=== PATIENT | male | born 1985 | race American Indian/Alaskan Native ===

== ENCOUNTER 2017-09-10 03:23 | Emergency (ER) | payer MEDICAID ==
[2017-09-10 03:55] VITALS: BP 153/104
[2017-09-10 05:04] LABS: Basophils # (Auto) 0.1 K/mm3 (0.0-0.1); Eosinophils # (Auto) 0.2 K/mm3 (0.0-0.4); Eosinophils % (Auto) 2.4 % (0.0-4.3); Hematocrit 38.1 % (35.5-45.6); Hemoglobin 12.7 gm/dl (11.8-15.2); Lymphocytes # (Auto) 3.2 K/mm3 (1.2-5.4); Lymphocytes % (Auto) 42.1 % (13.4-35.0); Mean Corpuscular HGB Conc 33 % (32-34); Mean Corpuscular Hemoglobin 30 pg (28-32); Mean Corpuscular Volume 89 fl (84-94); Monocytes # (Auto) 0.6 K/mm3 (0.0-0.8); Monocytes % (Auto) 8.1 % (0.0-7.3); Platelet Count 299 K/mm3 (140-440)
[2017-09-10 05:40] LABS: BUN/Creatinine Ratio 18; Blood Urea Nitrogen 16 mg/dL (9-20); Calcium 9.4 mg/dL (8.4-10.2); Hemolysis Index 12
== END 2017-09-10 05:00 | disposition left against medical advice (07) ==
LOC: ED 03:23
DX: R45.851 Suicidal ideations (principal); Z53.21 Procedure and treatment not carried out due to patient leaving prior to being seen by health care provider
CPT/HCPCS: 36415; 80048; 85025; G0480; 80320

== ENCOUNTER 2018-01-11 02:41 | Emergency (ER) | payer MEDICAID ==
[2018-01-11 04:18] LABS: Basophils # (Auto) 0.1 K/mm3 (0.0-0.1); Eosinophils # (Auto) 0.1 K/mm3 (0.0-0.4); Eosinophils % (Auto) 1.3 % (0.0-4.3); Hematocrit 41.7 % (35.5-45.6); Hemoglobin 14.3 gm/dl (11.8-15.2); Lymphocytes # (Auto) 2.5 K/mm3 (1.2-5.4); Lymphocytes % (Auto) 39.3 % (13.4-35.0); Mean Corpuscular HGB Conc 34 % (32-34); Mean Corpuscular Hemoglobin 30 pg (28-32); Mean Corpuscular Volume 88 fl (84-94); Monocytes # (Auto) 0.5 K/mm3 (0.0-0.8); Monocytes % (Auto) 7.3 % (0.0-7.3); Platelet Count 374 K/mm3 (140-440); Red Blood Count 4.73 M/mm3 (3.65-5.03); Red Cell Distribution Width 14.1 % (13.2-15.2)
[2018-01-11 04:22] LABS: BUN/Creatinine Ratio 17; Blood Urea Nitrogen 26 mg/dL (9-20); Calcium 10.1 mg/dL (8.4-10.2); Hemolysis Index 5
--- NOTE | 2018-01-11 06:25 | Emergency Department Report ---
HPI - General Chief Complaint: Medical Clearance Time Seen by Provider: 01/11/18 03:33 - HPI HPI: 32-year-old male presents to the emergency department for a mental health evaluation. The patient says that he walked here himself. He says that he shares a home with about 12 or 13 different people. He admits to a history of hernia and bipolar disorder and says he has been out of his medications for the past few weeks which include Seroquel, Wellbutrin and Risperdal. He says that there were some people that came into the house and it caused him to get very angry and "I lost my mind." The patient says that he has both auditory and visual hallucinations "". He describes the visual hallucinations as holographs and seeing clouds everywhere. He says that he hears voices that tell him to kill himself. ED Past Medical Hx - Past Medical History Hx Psychiatric Treatment: Yes - Surgical History Past Surgical History?: No Hx Coronary Stent: No Hx Pacemaker: No Hx Internal Defibrillator: No Hx Cholecystectomy: No Hx Appendectomy: No Hx Breast Surgery: No - Social History Smoking Status: Former Smoker Substance Use Type: Alcohol ED Review of Systems ROS: Stated complaint: MH Other details as noted in HPI Comment: All other systems reviewed and negative Constitutional: denies: chills, fever Eyes: denies: eye pain, eye discharge, vision change ENT: denies: ear pain, throat pain Respiratory: denies: cough, shortness of breath, wheezing Cardiovascular: denies: chest pain, palpitations Gastrointestinal: denies: abdominal pain, nausea, diarrhea Genitourinary: denies: urgency, dysuria Musculoskeletal: denies: back pain, joint swelling, arthralgia Skin: denies: rash, lesions Neurological: denies: headache, weakness, paresthesias Psychiatric: auditory hallucinations, visual hallucinations, suicidal thoughts Physical Exam - Physical Exam Vital Signs: Vital Signs 01/11/18 01/11/18 01/11/18 02:43 02:51 03:41 Temperature 97.9 F 97.9 F Pulse Rate 85 85 Respiratory 18 18 Rate Blood Pressure 139/90 139/90 O2 Sat by Pulse 96 96 99 Oximetry Physical Exam: GENERAL: The patient is well-developed well-nourished. HENT: Normocephalic. Atraumatic. Patient has moist mucous membranes. EYES: Extraocular motions are intact. Pupils equal reactive to light bilaterally. NECK: Supple. Trachea is midline. CHEST/LUNGS: Clear to auscultation. There is no respiratory distress noted. HEART/CARDIOVASCULAR: Regular. There is no tachycardia. There is no murmur. ABDOMEN: Abdomen is soft, nontender. Patient has normal bowel sounds. There is no abdominal distention. SKIN: Skin is warm and dry. NEURO: The patient is awake, alert. The patient is cooperative. The patient has no focal neurologic deficits. The patient has normal speech. MUSCULOSKELETAL: There is no tenderness or deformity. There is no evidence of acute injury. ED Course Vital Signs 01/11/18 01/11/18 01/11/18 02:43 02:51 03:41 Temperature 97.9 F 97.9 F Pulse Rate 85 85 Respiratory 18 18 Rate Blood Pressure 139/90 139/90 O2 Sat by Pulse 96 96 99 Oximetry ED Medical Decision Making - Lab Data Result diagrams: 01/11/18 03:10 01/11/18 03:10 - Medical Decision Making Patient's labs are mostly unremarkable except for a blood alcohol level of 0.15. We are awaiting urinalysis for assessment for urinary tract infection and urine drug screen. Vital signs stable throughout his ED course. While the blood alcohol level is about 2 times the legal limit, I am not sure if this is the cause for the patient's symptoms and/or complaints and he does have a established psychiatric history. However once his blood alcohol level is down under the legal limit and feel the patient would be medically cleared for psychiatric placement. The Fact that he has consistent auditory and visual hallucinations including voices that tell him to harm himself, that he is a candidate for being made a 1013 and inpatient psychiatric placement. - Differential Diagnosis schizophrenia, schizoaffective, bipolar disorder, substance abuse Critical Care Time: No Critical care attestation.: If time is entered above; I have spent that time in minutes in the direct care of this critically ill patient, excluding procedure time. ED Disposition Clinical Impression: Suicidal ideations, Auditory hallucinations, Visual hallucinations, History of schizophrenia, History of bipolar disorder Disposition: DC/TX-65 PSY HOSP/PSY UNIT Is pt being admited?: No Condition: Stable Referrals: PRIMARY CARE [Primary Care Provider] - 3-5 Days Time of Disposition: 06:26
[2018-01-11 07:11] LABS: Bacteria,Urine 1+ /HPF (Negative); Bilirubin,Urine NEG (Negative); Blood,Urine NEG (Negative); Color,Urine Yellow (Yellow); Mucus,Urine FEW /HPF; Protein,Urine <15 mg/dL mg/dL (Negative); Urobilinogen,Urine < 2.0 mg/dL (<2.0)
[2018-01-11 07:18] LABS: Amphetamine Screen,Urine PRESUMPTIVE NEGATIVE; Benzodiazepines Screen,Urine PRESUMPTIVE NEGATIVE; Methadone Screen,Urine PRESUMPTIVE NEGATIVE; Opiate Screen,Urine PRESUMPTIVE NEGATIVE
[2018-01-11 07:31] LABS: Cannabinoid Screen,Urine PRESUMPTIVE POSITIVE; Cocaine Screen,Urine PRESUMPTIVE POSITIVE
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
[2018-01-11] MEDS ORDERED: DESYREL PO PRN (13:22)
[2018-01-11 20:21] VITALS: BP 128/98
[2018-01-11] MEDS ORDERED: RisperDAL PO SCH (22:00)
== END 2018-01-11 20:20 ==
LOC: EEVIPCON 02:41 → ED 02:41
DX: R45.851 Suicidal ideations (principal); R44.0 Auditory hallucinations; R44.1 Visual hallucinations; F31.9 Bipolar disorder, unspecified; F20.9 Schizophrenia, unspecified
CPT/HCPCS: 36415; 80048; 80307; 81001; 85025; 99285; G0480; 80320

== ENCOUNTER 2018-02-17 18:55 | Emergency (ER) | payer MEDICAID ==
[2018-02-17] MEDS ORDERED: ATIVAN IM ONE (22:01)
--- NOTE | 2018-02-17 22:07 | Emergency Department Report ---
ED Altered Mental Status HPI - General Chief Complaint: Animal Bite Stated Complaint: HAND IS NUMB AND HURTS Time Seen by Provider: 02/17/18 21:57 Source: patient Mode of arrival: Ambulatory Limitations: No Limitations - History of Present Illness Initial Comments: I obtained history from previous electronic record. Mr. Chavis has a history of polysubstance abuse and schizophrenia. He presents with thesensation of bugs crawling all over him. He feels as if his hand may have been bitten by a bug. Left hand is numb. He states that he can't move it but he is able is able to make a fist. He is obviously drowsy. He appears intoxicated. When asked about drug abuse. He refuses to answer the question. He does take Seroquel and Abilify. He did take these medications prior to arrival. He walked into the ER. He also states that he feels as if his heart is racing. MD Complaint: altered mental status -: unknown Severity: mild Context: alcohol abuse, drug abuse, history of similar presen Associated Symptoms: other (sensation of bugs crawling on him) - Related Data Home Medications Medication Instructions Recorded Confirmed Last Taken ARIPiprazole [Abilify] 10 mg PO DAILY 02/18/18 02/18/18 Unknown QUEtiapine [SEROquel] 200 mg PO QHS 02/18/18 02/18/18 Unknown buPROPion [Wellbutrin] 100 mg PO DAILY 02/18/18 02/18/18 Unknown Allergies Allergy/AdvReac Type Severity Reaction Status Date / Time Penicillins Allergy Itching Verified 02/17/18 19:35 ED Review of Systems ROS: Stated complaint: HAND IS NUMB AND HURTS Other details as noted in HPI Comment: All other systems reviewed and negative Constitutional: denies: fever, malaise Cardiovascular: denies: chest pain ED Past Medical Hx - Past Medical History Hx Psychiatric Treatment: Yes - Surgical History Hx Coronary Stent: No Hx Pacemaker: No Hx Internal Defibrillator: No Hx Cholecystectomy: No Hx Appendectomy: No Hx Breast Surgery: No - Social History Smoking Status: Current Every Day Smoker Substance Use Type: Alcohol, Marijuana - Medications Home Medications: Home Medications Medication Instructions Recorded Confirmed Last Taken Type ARIPiprazole [Abilify] 10 mg PO DAILY 02/18/18 02/18/18 Unknown History QUEtiapine [SEROquel] 200 mg PO QHS 02/18/18 02/18/18 Unknown History buPROPion [Wellbutrin] 100 mg PO DAILY 02/18/18 02/18/18 Unknown History ED Physical Exam - General Limitations: No Limitations General appearance: alert, in no apparent distress, other (appears drowsy jumpy) - Head Head exam: Present: atraumatic, normocephalic - Eye Eye exam: Present: normal appearance, PERRL, EOMI. Absent: scleral icterus, conjunctival injection - ENT ENT exam: Present: mucous membranes moist - Neck Neck exam: Present: normal inspection. Absent: tenderness, meningismus - Respiratory Respiratory exam: Present: normal lung sounds bilaterally. Absent: respiratory distress, wheezes, rales, rhonchi - Cardiovascular Cardiovascular Exam: Present: regular rate, normal rhythm, normal heart sounds. Absent: bradycardia, tachycardia, systolic murmur, diastolic murmur, rubs, gallop - GI/Abdominal GI/Abdominal exam: Present: soft, normal bowel sounds. Absent: distended, tenderness, guarding, rebound - Rectal Rectal exam: Present: deferred - Extremities Exam Extremities exam: Present: normal inspection - Back Exam Back exam: Present: normal inspection - Neurological Exam Neurological exam: Present: alert, oriented X3 - Psychiatric Psychiatric exam: Present: other (flat affect ). Absent: homicidal ideation, suicidal ideation - Skin Skin exam: Present: warm, dry, intact, normal color. Absent: rash ED Course Vital Signs 02/17/18 02/18/18 19:35 08:08 Temperature 97.8 F 97.1 F L Pulse Rate 108 H 73 Respiratory 20 16 Rate Blood Pressure 139/81 Blood Pressure 129/86 [Left] O2 Sat by Pulse 98 100 Oximetry - Lab Data Result diagrams: 02/17/18 22:53 02/17/18 22:53 Lab Results 02/17/18 02/17/18 02/17/18 Range/Units 22:53 22:53 22:53 WBC 8.8 (4.5-11.0) K/mm3 RBC 3.89 (3.65-5.03) M/mm3 Hgb 11.2 L (11.8-15.2) gm/dl Hct 33.4 L (35.5-45.6) % MCV 86 (84-94) fl MCH 29 (28-32) pg MCHC 34 (32-34) % RDW 13.4 (13.2-15.2) % Plt Count 343 (140-440) K/mm3 Lymph % (Auto) 21.7 (13.4-35.0) % Taylor % (Auto) 6.3 (0.0-7.3) % Eos % (Auto) 0.2 (0.0-4.3) % Baso % (Auto) 0.6 (0.0-1.8) % Lymph # 1.9 (1.2-5.4) K/mm3 Taylor # 0.6 (0.0-0.8) K/mm3 Eos # 0.0 (0.0-0.4) K/mm3 Baso # 0.1 (0.0-0.1) K/mm3 Seg Neutrophils % 71.2 H (40.0-70.0) % Seg Neutrophils # 6.3 (1.8-7.7) K/mm3 Sodium 142 (137-145) mmol/L Potassium 4.0 (3.6-5.0) mmol/L Chloride 102.9 (98-107) mmol/L Carbon Dioxide 26 (22-30) mmol/L Anion Gap 17 mmol/L BUN 11 (9-20) mg/dL Creatinine 0.9 (0.8-1.5) mg/dL Estimated GFR > 60 ml/min BUN/Creatinine Ratio 12 % Glucose 81 (75-100) mg/dL Calcium 9.5 (8.4-10.2) mg/dL Total Bilirubin 0.20 (0.1-1.2) mg/dL AST 28 (5-40) units/L ALT 18 (7-56) units/L Alkaline Phosphatase 68 (35-129) units/L Total Protein 8.1 (6.3-8.2) g/dL Albumin 4.4 (3.9-5) g/dL Albumin/Globulin Ratio 1.2 % Salicylates < 0.3 L (2.8-20.0) mg/dL Acetaminophen (10.0-30.0) ug/mL Plasma/Serum Alcohol (0-0.07) % 02/17/18 02/17/18 Range/Units 22:53 22:53 WBC (4.5-11.0) K/mm3 RBC (3.65-5.03) M/mm3 Hgb (11.8-15.2) gm/dl Hct (35.5-45.6) % MCV (84-94) fl MCH (28-32) pg MCHC (32-34) % RDW (13.2-15.2) % Plt Count (140-440) K/mm3 Lymph % (Auto) (13.4-35.0) % Taylor % (Auto) (0.0-7.3) % Eos % (Auto) (0.0-4.3) % Baso % (Auto) (0.0-1.8) % Lymph # (1.2-5.4) K/mm3 Taylor # (0.0-0.8) K/mm3 Eos # (0.0-0.4) K/mm3 Baso # (0.0-0.1) K/mm3 Seg Neutrophils % (40.0-70.0) % Seg Neutrophils # (1.8-7.7) K/mm3 Sodium (137-145) mmol/L Potassium (3.6-5.0) mmol/L Chloride (98-107) mmol/L Carbon Dioxide (22-30) mmol/L Anion Gap mmol/L BUN (9-20) mg/dL Creatinine (0.8-1.5) mg/dL Estimated GFR ml/min BUN/Creatinine Ratio % Glucose (75-100) mg/dL Calcium (8.4-10.2) mg/dL Total Bilirubin (0.1-1.2) mg/dL AST (5-40) units/L ALT (7-56) units/L Alkaline Phosphatase (35-129) units/L Total Protein (6.3-8.2) g/dL Albumin (3.9-5) g/dL Albumin/Globulin Ratio % Salicylates (2.8-20.0) mg/dL Acetaminophen < 5.0 L (10.0-30.0) ug/mL Plasma/Serum Alcohol < 0.01 (0-0.07) % - Medical Decision Making Mr. Chavis presents with altered mental status. Sensation of bugs crawling on his body. I strongly suspect intoxication of drugs or alcohol. He does have a documented history of polysubstance abuse on previous ED visit. Critical care attestation.: If time is entered above; I have spent that time in minutes in the direct care of this critically ill patient, excluding procedure time. ED Disposition Clinical Impression: Drug intoxication with delirium Disposition: DC-01 TO HOME OR SELFCARE Is pt being admited?: No Does the pt Need Aspirin: No Condition: Stable Instructions: Polysubstance Abuse (ED)
[2018-02-17 23:13] LABS: Basophils # (Auto) 0.1 K/mm3 (0.0-0.1); Basophils % (Auto) 0.6 % (0.0-1.8); Eosinophils % (Auto) 0.2 % (0.0-4.3); Hematocrit 33.4 % (35.5-45.6); Hemoglobin 11.2 gm/dl (11.8-15.2); Lymphocytes # (Auto) 1.9 K/mm3 (1.2-5.4); Lymphocytes % (Auto) 21.7 % (13.4-35.0); Mean Corpuscular HGB Conc 34 % (32-34); Mean Corpuscular Hemoglobin 29 pg (28-32); Mean Corpuscular Volume 86 fl (84-94); Monocytes # (Auto) 0.6 K/mm3 (0.0-0.8); Monocytes % (Auto) 6.3 % (0.0-7.3); Platelet Count 343 K/mm3 (140-440); Red Blood Count 3.89 M/mm3 (3.65-5.03); Red Cell Distribution Width 13.4 % (13.2-15.2)
[2018-02-17 23:26] LABS: Alanine Aminotransferase 18 units/L (7-56); Albumin 4.4 g/dL (3.9-5); BUN/Creatinine Ratio 12; Blood Urea Nitrogen 11 mg/dL (9-20); Calcium 9.5 mg/dL (8.4-10.2); Hemolysis Index 1
[2018-02-18] MEDS ORDERED: ATIVAN ONE (00:29)
[2018-02-18 10:56] VITALS: BP 129/86
== END 2018-02-18 09:39 | disposition home or self-care (01) ==
LOC: ED 18:55
DX: R41.0 Disorientation, unspecified (principal); T43.595A Adverse effect of other antipsychotics and neuroleptics, initial encounter; F20.9 Schizophrenia, unspecified; F10.129 Alcohol abuse with intoxication, unspecified; F19.10 Other psychoactive substance abuse, uncomplicated; F17.200 Nicotine dependence, unspecified, uncomplicated; F12.10 Cannabis abuse, uncomplicated; Z88.0 Allergy status to penicillin; Y92.89 Other specified places as the place of occurrence of the external cause
CPT/HCPCS: 36415; 80053; 85025; 96372; 99283; G0480; J2060; 80320

== ENCOUNTER 2018-02-19 01:37 | Emergency (ER) | payer MEDICAID ==
[2018-02-19 02:27] LABS: Basophils # (Auto) 0.1 K/mm3 (0.0-0.1); Basophils % (Auto) 0.8 % (0.0-1.8); Eosinophils # (Auto) 0.2 K/mm3 (0.0-0.4); Eosinophils % (Auto) 2.4 % (0.0-4.3); Hematocrit 36.9 % (35.5-45.6); Hemoglobin 12.3 gm/dl (11.8-15.2); Lymphocytes # (Auto) 2.9 K/mm3 (1.2-5.4); Mean Corpuscular HGB Conc 33 % (32-34); Mean Corpuscular Hemoglobin 29 pg (28-32); Mean Corpuscular Volume 88 fl (84-94); Monocytes # (Auto) 0.6 K/mm3 (0.0-0.8); Monocytes % (Auto) 7.4 % (0.0-7.3); Platelet Count 351 K/mm3 (140-440); Red Cell Distribution Width 13.5 % (13.2-15.2)
[2018-02-19 02:51] LABS: BUN/Creatinine Ratio 15; Blood Urea Nitrogen 21 mg/dL (9-20); Calcium 9.7 mg/dL (8.4-10.2); Hemolysis Index 1
[2018-02-19 04:23] VITALS: BP 121/67
[2018-02-19 06:16] LABS: Benzodiazepines Screen,Urine PRESUMPTIVE NEGATIVE; Methadone Screen,Urine PRESUMPTIVE NEGATIVE; Opiate Screen,Urine PRESUMPTIVE NEGATIVE
[2018-02-19 06:19] LABS: Bilirubin,Urine NEG (Negative); Blood,Urine NEG (Negative); Color,Urine Yellow (Yellow); Protein,Urine <15 mg/dL mg/dL (Negative); Urobilinogen,Urine < 2.0 mg/dL (<2.0)
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
[2018-02-19 06:28] LABS: Amphetamine Screen,Urine PRESUMPTIVE POSITIVE; Cannabinoid Screen,Urine PRESUMPTIVE POSITIVE; Cocaine Screen,Urine PRESUMPTIVE POSITIVE
--- NOTE | 2018-02-19 06:42 | XRay Report ---
FINAL REPORT EXAM: XR TIBIA FIBULA 2V RT HISTORY: pain COMPARISONS: None. FINDINGS: AP and lateral views right tib fib No bone lesion, periosteal reaction, or fracture. No deformity or gross malalignment. Imaged joint spaces are within normal limits. IMPRESSION: Intact right tibia and fibula. Consider additional imaging for worsening/persistent symptoms.
== END 2018-02-19 07:50 | disposition home or self-care (01) ==
LOC: ED 01:37
DX: M79.604 Pain in right leg (principal); F20.9 Schizophrenia, unspecified; F17.200 Nicotine dependence, unspecified, uncomplicated; F12.90 Cannabis use, unspecified, uncomplicated; Z88.0 Allergy status to penicillin; Z79.899 Other long term (current) drug therapy
CPT/HCPCS: 36415; 73590; 80048; 80307; 81001; 85025; 99284; G0480; 80320

== ENCOUNTER 2018-04-07 14:15 | Emergency (ER) | payer MEDICAID ==
[2018-04-07 14:22] VITALS: BP 127/90
--- NOTE | 2018-04-07 14:57 | Emergency Department Report ---
Suture/Staple Removal - [facility] Chief Complaint: Laceration/Recheck/Suture Stated Complaint: FESTUS IN HEAD/REMOVAL Time Seen by Provider: 04/07/18 14:57 When Sutures or [place] Placed: >14 Days Ago Wound Location: left temporal scalp region ED Review of Systems ROS: Stated complaint: FESTUS IN HEAD/REMOVAL Other details as noted in HPI Constitutional: denies: chills, fever Eyes: denies: eye pain, eye discharge, vision change ENT: denies: ear pain, throat pain Respiratory: denies: cough, shortness of breath, wheezing Cardiovascular: denies: chest pain, palpitations Endocrine: no symptoms reported Gastrointestinal: denies: abdominal pain, nausea, diarrhea Genitourinary: denies: urgency, dysuria Musculoskeletal: denies: back pain, joint swelling, arthralgia Skin: denies: rash, lesions Neurological: denies: headache, weakness, paresthesias Psychiatric: denies: anxiety, depression Hematological/Lymphatic: denies: easy bleeding, easy bruising ED Past Medical Hx - Past Medical History Hx Psychiatric Treatment: Yes (schizo depression) - Surgical History Hx Coronary Stent: No Hx Pacemaker: No Hx Internal Defibrillator: No Hx Cholecystectomy: No Hx Appendectomy: No Hx Breast Surgery: No - Social History Smoking Status: Current Every Day Smoker Substance Use Type: Alcohol - Medications Home Medications: Home Medications Medication Instructions Recorded Confirmed Last Taken Type ARIPiprazole [Abilify] 10 mg PO DAILY 02/18/18 02/18/18 Unknown History QUEtiapine [SEROquel] 200 mg PO QHS 02/18/18 02/18/18 Unknown History buPROPion [Wellbutrin] 100 mg PO DAILY 02/18/18 02/18/18 Unknown History Suture Removal Exam - Exam General: Vital signs noted. No distress. Alert and acting appropriately. GENERAL: The patient is a well-developed, well-nourished in no apparent distress. Patient is alert and acting appropriately for age. Alert and oriented 3, no apparent distress, normal gait, atraumatic. HEENT: Head is normocephalic and atraumatic. PERRL, Extraocular muscles are intact. Pupils are equal, round, and reactive to light and accommodation. Nares appeared normal. Mouth is well hydrated and without lesions. Mucous membranes are moist. Posterior pharynx clear of any exudate or lesions. Mouth is well hydrated and without lesions. Tonsils not erythematous or swollen. Uvula midline. Tongue elevated. Mucous members are moist. Posterior pharynx clear, no exudate or lesions. Patent airways. NECK: Supple. No carotid bruits. No lymphadenopathy or thyromegaly.nontender. No meningitic signs are noted. LUNGS: Clear to auscultation. Non labor breathing. No intercostal retractions. Symmetrical with respiration, no wheezing, no rales, or crackles. HEART: Regular rate and rhythm without murmur, rubs or gallops. No reproducible. S1, S2 present, regular rate and rhythm without murmur, no rubs, no gallops. ABDOMEN: Soft, nontender, and nondistended. Positive bowel sounds. No hepatosplenomegaly was noted. No guarding or rebound tenderness, negative epigastric bruit. Negative psoas sign, negative dawn sign, negative McBurneys sign EXTREMITIES: Without any cyanosis, clubbing, rash, lesions or edema. Peripheral pulses intact. Capillary refill less than 2 seconds. Full range of motion bilaterally. NEUROLOGIC: Cranial nerves II through XII are grossly intact. Alert and oriented x 3. Normal gait. Symmetrical strength and sensation. Reflexes 2+ throughout. Cerebellar testing normal. GCS score of 15. PSYCHIATRIC: Normal affect with no suicidal or homicidal ideations. Wound: No Pathologic Erythema, No Tenderness, No Drainage, No Pus, No Wound Dehiscence Other Systems: All other systems reviewed and are unremarkable. ED Course Vital Signs 04/07/18 14:20 Temperature 99 F Pulse Rate 79 Respiratory 18 Rate Blood Pressure 127/90 O2 Sat by Pulse 99 Oximetry - Reevaluation(s) Reevaluation #1: 04/07/18 15:12 Patient is speaking in full sentences with no signs of distress noted. ED Recheck MDM - Medical Decision Making This is a 32-year-old male that presents with fever. Patient stated that he received festus 14 days ago and [facility]. Patient stated he is not sure how many festus has been put. Patient denies any pus or drainage. Total of 2 festus have been removed left temporal scalp area. Patient was instructed to follow-up with [facility] to make sure that there was no other festus to be removed. Upon examination I did not see any other staple sites. Well healing with no signs of abscuess or cellulitits. No skin deshince. At time of discharge, the patient does not seem toxic or ill in appearance. No acute signs of distress noted. Patient agrees to discharge treatment plan of care. No further questions noted by the patient. Critical care attestation.: If time is entered above; I have spent that time in minutes in the direct care of this critically ill patient, excluding procedure time. ED Disposition Clinical Impression: Removal of staple Disposition: DC- TO HOME OR SELFCARE Is pt being admited?: No Does the pt Need Aspirin: No Condition: Stable Additional Instructions: Follow-up with a primary care doctor in 3-5 days or if symptoms worsen and continue return to emergency room as soon as possible. As instructed to you, please report back to [facility] to make sure that all festus has been removed. Referrals: PRIMARY CARE, [Primary Care Provider] - 3-5 Days GENA CHRISTIAN MD [Staff Physician] - 3-5 Days [facility] [Outside] - 3-5 Days
== END 2018-04-07 15:35 | disposition home or self-care (01) ==
LOC: ED 14:15
DX: S01.91XD Laceration without foreign body of unspecified part of head, subsequent encounter (principal); F17.200 Nicotine dependence, unspecified, uncomplicated; X58.XXXD Exposure to other specified factors, subsequent encounter

== ENCOUNTER 2018-05-07 06:41 | Emergency (ER) | payer MEDICAID ==
[2018-05-07 09:12] LABS: Hematocrit 37.2 % (35.5-45.6); Hemoglobin 12.2 gm/dl (11.8-15.2); Mean Corpuscular HGB Conc 33 % (32-34); Mean Corpuscular Hemoglobin 30 pg (28-32); Mean Corpuscular Volume 91 fl (84-94); Platelet Count 293 K/mm3 (140-440); Red Cell Distribution Width 14.5 % (13.2-15.2)
[2018-05-07 09:28] LABS: BUN/Creatinine Ratio 14; Blood Urea Nitrogen 15 mg/dL (9-20); Calcium 9.4 mg/dL (8.4-10.2); Hemolysis Index 7
[2018-05-07 09:54] LABS: Basophils % (Manual) 0 % (0.0-1.8); Total Cells Counted 100
[2018-05-07 09:55] LABS: Anisocytosis Few; Poikilocytosis Few; Schistocytes Rare; Target Cells Few
--- NOTE | 2018-05-07 10:43 | Emergency Department Report ---
ED Psych HPI - General Chief Complaint: Psych Stated Complaint: MH, SI Time Seen by Provider: 05/07/18 10:02 Source: patient Mode of arrival: Stretcher - History of Present Illness Initial Comments: Patient is 32 years old male with history of schizophrenia. Patient presented to the ER stating that he is hearing voices asking him to kill himself with a knife. Patient denied any homicidal ideation. No visual hallucination. MD Complaint: suicidal ideation -: Sudden Associated Psychiatric Symptoms: suicidal ideation, auditory hallucinations If Self Harm: admits thoughts of, has plan, self-inflicted trauma - Related Data Home Medications Medication Instructions Recorded Confirmed Last Taken ARIPiprazole [Abilify] 10 mg PO DAILY 02/18/18 02/18/18 Unknown QUEtiapine [SEROquel] 200 mg PO QHS 02/18/18 02/18/18 Unknown buPROPion [Wellbutrin] 100 mg PO DAILY 02/18/18 02/18/18 Unknown Allergies Allergy/AdvReac Type Severity Reaction Status Date / Time Penicillins Allergy Itching Verified 02/17/18 19:35 ED Review of Systems ROS: Stated complaint: MH, SI Other details as noted in HPI Comment: All other systems reviewed and negative Constitutional: denies: chills, fever ENT: denies: ear pain, throat pain Respiratory: denies: cough, orthopnea, shortness of breath, SOB with exertion Cardiovascular: denies: chest pain, palpitations Gastrointestinal: denies: abdominal pain, nausea, vomiting Musculoskeletal: denies: back pain Neurological: denies: headache, weakness, numbness, paresthesias, confusion, abnormal gait Psychiatric: auditory hallucinations, suicidal thoughts. denies: depression, visual hallucinations, homicidal thoughts ED Past Medical Hx - Past Medical History Hx Psychiatric Treatment: Yes (schizo depression) - Surgical History Hx Coronary Stent: No Hx Pacemaker: No Hx Internal Defibrillator: No Hx Cholecystectomy: No Hx Appendectomy: No Hx Breast Surgery: No - Social History Smoking Status: Current Every Day Smoker Substance Use Type: Alcohol, Marijuana - Medications Home Medications: Home Medications Medication Instructions Recorded Confirmed Last Taken Type ARIPiprazole [Abilify] 10 mg PO DAILY 02/18/18 02/18/18 Unknown History QUEtiapine [SEROquel] 200 mg PO QHS 02/18/18 02/18/18 Unknown History buPROPion [Wellbutrin] 100 mg PO DAILY 02/18/18 02/18/18 Unknown History ED Physical Exam - General Limitations: No Limitations General appearance: alert, in no apparent distress - Head Head exam: Present: atraumatic, normocephalic, normal inspection - Eye Eye exam: Present: normal appearance, PERRL - ENT ENT exam: Present: normal exam, normal orophraynx, mucous membranes moist - Neck Neck exam: Present: normal inspection, full ROM. Absent: tenderness, meningismus, lymphadenopathy, thyromegaly - Respiratory Respiratory exam: Present: normal lung sounds bilaterally. Absent: respiratory distress, wheezes, rales, rhonchi, stridor, chest wall tenderness, accessory muscle use, decreased breath sounds, prolonged expiratory - Cardiovascular Cardiovascular Exam: Present: regular rate, normal rhythm, normal heart sounds - GI/Abdominal GI/Abdominal exam: Present: soft, normal bowel sounds. Absent: distended, tenderness, guarding, rebound, rigid - Extremities Exam Extremities exam: Present: normal inspection, full ROM, normal capillary refill - Back Exam Back exam: Present: normal inspection, full ROM. Absent: CVA tenderness (R), CVA tenderness (L), paraspinal tenderness, vertebral tenderness - Neurological Exam Neurological exam: Present: alert, oriented X3, CN II-XII intact - Psychiatric Psychiatric exam: Present: normal affect, normal mood, suicidal ideation. Absent: depressed, agitated, anxious, flat affect, manic, homicidal ideation - Skin Skin exam: Present: warm, intact, normal color ED Course Vital Signs 05/07/18 08:17 Temperature 98.3 F Pulse Rate 73 Respiratory 20 Rate Blood Pressure 121/78 O2 Sat by Pulse 98 Oximetry ED Medical Decision Making - Lab Data Result diagrams: 05/07/18 09:00 05/07/18 09:00 Critical care attestation.: If time is entered above; I have spent that time in minutes in the direct care of this critically ill patient, excluding procedure time. ED Disposition Clinical Impression: Suicidal ideation, Auditory hallucinations Disposition: DC/TX-[facility] PS[facility] HOSP/PSY UNIT Is pt being admited?: No Condition: Stable Referrals: PRIMARY CARE, [Primary Care Provider] - 3-5 Days
[2018-05-08 09:20] LABS: Bilirubin,Urine NEG (Negative); Blood,Urine NEG (Negative); Color,Urine Yellow (Yellow); Mucus,Urine FEW /HPF; Protein,Urine <15 mg/dL mg/dL (Negative); Urobilinogen,Urine < 2.0 mg/dL (<2.0)
[2018-05-08 09:27] LABS: Amphetamine Screen,Urine PRESUMPTIVE NEGATIVE; Benzodiazepines Screen,Urine PRESUMPTIVE NEGATIVE; Methadone Screen,Urine PRESUMPTIVE NEGATIVE; Opiate Screen,Urine PRESUMPTIVE NEGATIVE
[2018-05-08 09:44] LABS: Cannabinoid Screen,Urine PRESUMPTIVE POSITIVE; Cocaine Screen,Urine PRESUMPTIVE POSITIVE
[2018-05-08 11:11] VITALS: BP 129/72
== END 2018-05-08 14:42 ==
LOC: ED 06:41 → EEVIPCON 06:41 → ED 05-08 14:42
DX: R45.851 Suicidal ideations (principal); R44.0 Auditory hallucinations; F20.9 Schizophrenia, unspecified; F17.200 Nicotine dependence, unspecified, uncomplicated; F12.10 Cannabis abuse, uncomplicated; Z88.0 Allergy status to penicillin
CPT/HCPCS: 36415; 80048; 80307; 81001; 85007; 85025; 99285; G0480; 80320

== ENCOUNTER 2018-05-20 12:48 | Emergency (ER) | payer MEDICAID ==
[2018-05-20 13:00] VITALS: BP 124/96
--- NOTE | 2018-05-20 14:13 | Emergency Department Report ---
ED Dysuria HPI - HPI Chief Complaint: Urogenital-Male Stated Complaint: STD CHECK Time Seen by Provider: 05/20/18 14:10 Duration: 3 Days Location of Discomfort: Urethra (dysuria) Severity: Mild Symptoms: Dysuria: Yes, Frequency: No, Suprapubic Pain: No, Flank Pain: No, Fever: No, Hematuria: No, Abdominal Pain: No, Previous UTI's: No ED Review of Systems ROS: Stated complaint: STD CHECK Other details as noted in HPI Comment: All other systems reviewed and negative Constitutional: denies: chills, fever Eyes: denies: eye pain ENT: denies: ear pain Respiratory: denies: cough Cardiovascular: denies: dyspnea on exertion Endocrine: denies: flushing Gastrointestinal: denies: abdominal pain, nausea, vomiting, diarrhea, constipation, hematemesis, melena Genitourinary: dysuria, discharge. denies: urgency, frequency, hematuria Musculoskeletal: denies: back pain Skin: denies: rash, lesions Neurological: denies: headache, weakness Psychiatric: denies: anxiety Hematological/Lymphatic: denies: easy bleeding ED Past Medical Hx - Past Medical History Previous Medical History?: No Hx Psychiatric Treatment: Yes (schizo depression) Additional medical history: concussion 2018 head trauma - Surgical History Hx Coronary Stent: No Hx Pacemaker: No Hx Internal Defibrillator: No Hx Cholecystectomy: No Hx Appendectomy: No Hx Breast Surgery: No - Family History Family history: no significant - Social History Smoking Status: Current Every Day Smoker Substance Use Type: Alcohol, Marijuana - Medications Home Medications: Home Medications Medication Instructions Recorded Confirmed Last Taken Type ARIPiprazole [Abilify] 10 mg PO DAILY 02/18/18 02/18/18 Unknown History QUEtiapine [SEROquel] 200 mg PO QHS 02/18/18 02/18/18 Unknown History buPROPion [Wellbutrin] 100 mg PO DAILY 02/18/18 02/18/18 Unknown History Dysuria Exam - Exam General: Vital signs noted. No distress. Alert and acting appropriately. Exam: Yes Moist Mucous Membranes, No CVA Tenderness, No Abdominal Tenderness, No Rigidity or Guarding ED Course Vital Signs 05/20/18 12:57 Temperature 97.8 F Pulse Rate 64 Respiratory 18 Rate Blood Pressure 124/96 O2 Sat by Pulse 99 Oximetry ED Medical Decision Making - Medical Decision Making NONTOXIC - Differential Diagnosis STI Critical care attestation.: If time is entered above; I have spent that time in minutes in the direct care of this critically ill patient, excluding procedure time. ED Disposition Clinical Impression: STI (sexually transmitted infection) Disposition: TO HOME OR SELFCARE Is pt being admited?: No Does the pt Need Aspirin: No Condition: Stable Instructions: Sexually Transmitted Diseases (ED) Additional Instructions: SAFE SEX Referrals: PRIMARY MD MCKENZIE [Primary Care Provider] - 3-5 Days MARIE CORBETT MD [Staff Physician] - 3-5 Days Time of Disposition: 14:11
[2018-05-20] MEDS ORDERED: ZITHROMAX PO ONE (14:35)
[2018-05-20] MEDS ORDERED: XYLOCAINE 1% MPF 5 mL INFILTRATI ONE (14:36)
[2018-05-20] MEDS ORDERED: ROCEPHIN IM ONE (14:36)
[2018-05-20 15:01] LABS: Bilirubin,Urine NEG (Negative); Blood,Urine NEG (Negative); Color,Urine Yellow (Yellow); Mucus,Urine 3+ /HPF
== END 2018-05-20 15:46 | disposition home or self-care (01) ==
LOC: ED 12:48
DX: A64 Unspecified sexually transmitted disease (principal); F17.200 Nicotine dependence, unspecified, uncomplicated; F12.90 Cannabis use, unspecified, uncomplicated; Z88.0 Allergy status to penicillin
CPT/HCPCS: 81001; 96372; 99283; J0696

== ENCOUNTER 2018-05-30 10:08 | Emergency (ER) | payer MEDICAID ==
[2018-05-30 10:45] VITALS: BP 146/96
[2018-05-30] MEDS ORDERED: DECADRON IM ONE (11:26)
--- NOTE | 2018-05-30 11:26 | Emergency Department Report ---
ED Rash HPI - HPI Chief Complaint: Skin Rash Stated Complaint: ITCHY/SOB/DRUG USE Time Seen by Provider: 05/30/18 11:07 Duration: 1 Day Location: Back, Lower Extremities (bilateral lower extremity) Suspected Cause: Insect Rash Symptoms: Yes Itching, No Facial Swelling, No Tongue/Oral Swelling, No Breathing Difficulties, No Choking Sensation, No Wheezing/Dyspnea, No Peeling, No Blistering, No Fever, No Lightheaded, No Malaise, No Myalgias Severity: mild Other History: This is a 32-year-old -Polish male who presents with multiple bites to posterior torso and bilateral lower extremities from insect bites. Patient states he is living in a rooming house and noticed multiple bite sullivan to lower extremity this morning. He woke up this morning itching and feeling uncomfortable. Past medical history schizophrenia. Patient states he also took some illicit drugs last night but he does not think itching or rash is related to that. Patient states he is currently take prescribed medication and does not hear voices. He is only concerned about insect bites. He denies shortness of breath, chest pain, swelling, numbness or tingling, suicidal or homicidal ideation. ED Review of Systems ROS: Stated complaint: ITCHY/SOB/DRUG USE Other details as noted in HPI Constitutional: denies: chills, fever Respiratory: denies: cough, shortness of breath, wheezing Cardiovascular: denies: chest pain, palpitations Gastrointestinal: denies: abdominal pain, nausea, diarrhea Skin: rash (puritic rash to the torso and bilateral lower extremity). denies: lesions Neurological: denies: headache, weakness, paresthesias Psychiatric: denies: anxiety, depression ED Past Medical Hx - Past Medical History Previous Medical History?: Yes Hx Psychiatric Treatment: Yes (schizo depression) Additional medical history: concussion 2018 head trauma - Surgical History Hx Coronary Stent: No Hx Pacemaker: No Hx Internal Defibrillator: No Hx Cholecystectomy: No Hx Appendectomy: No Hx Breast Surgery: No - Social History Smoking Status: Current Every Day Smoker Substance Use Type: Other - Medications Home Medications: Home Medications Medication Instructions Recorded Confirmed Last Taken Type ARIPiprazole [Abilify] 10 mg PO DAILY 02/18/18 02/18/18 Unknown History QUEtiapine [SEROquel] 200 mg PO QHS 02/18/18 02/18/18 Unknown History buPROPion [Wellbutrin] 100 mg PO DAILY 02/18/18 02/18/18 Unknown History Loratadine [Claritin] 10 mg PO DAILY #20 tablet 05/30/18 Unknown Rx Triamcinolone 0.5% [Kenalog 0.5% 1 applic TP TID #1 tube 05/30/18 Unknown Rx CREAM] Rash Exam - Exam General: Vital signs noted. No distress. Alert and acting appropriately. HEENT: No Periorbital Edema, No Conjuctival Injection, No Chemosis, No Perioral Edema, No Tongue Edema, No Uvular Edema, No Compromised Airway, No Drooling Lungs: Yes Good Air Exchange (Normal Breath Sounds), No Wheezes, No Ronchi, No Stridor, No Cough, No Labored Respirations, No Retractions, No Use of Accessory Muscles, No Other Abnormal Lung Sounds Heart: Yes Regular, No Murmur Skin: Yes Maculopapular Rash (cluster of erythematous maculopapular rash to posterior torso and bilateral lower extremity), No Urticarial Rash, No Morbilliform rash, No Bulla(e), No Excoriations, No Weeping, No Tenderness, No Erythema, No Edema, No Encrustations ED Course Vital Signs 05/30/18 10:31 Temperature 98.1 F Pulse Rate 86 Respiratory 18 Rate Blood Pressure 146/96 O2 Sat by Pulse 98 Oximetry ED Medical Decision Making - Medical Decision Making Patient was examined by me. Vitals are normal and patient is in no acute distress. Given dexamethasone 8 mg IM once. Patient admits to polysubstance abuse. He refused labs. He denies suicidal or homicidal ideation. Start Claritin and triamcinolone for insect bites. Referral to mental health for further evaluation for outpatient detox care. Plan discussed with patient to discharge home and treat outpatient. He agrees with ER plan. Patient discharged home in stable condition. Follow up with PCP in 2-3 days. Critical care attestation.: If time is entered above; I have spent that time in minutes in the direct care of this critically ill patient, excluding procedure time. ED Disposition Clinical Impression: Polysubstance abuse Insect bite Qualifiers: Encounter type: initial encounter Qualified Code(s): W57.XXXA - Bitten or stung by nonvenomous insect and other nonvenomous arthropods, initial encounter Disposition: DC-01 TO HOME OR SELFCARE Is pt being admited?: No Does the pt Need Aspirin: No Condition: Stable Instructions: Insect Bite or Sting (ED), Polysubstance Abuse (ED) Additional Instructions: Apply a thin layer of triamcinolone cream twice a day for 5-10 days. Wash area before applying cream. Follow-up with [facility] for further management of substance abuse. Follow up with primary care provider in 24-72 hours. Prescriptions: Loratadine [Claritin] 10 mg PO DAILY #20 tablet Triamcinolone 0.5% [Kenalog 0.5% CREAM] 1 applic TP TID #1 tube Referrals: [facility] [Outside] - 3-5 Days Gage Danielle [Other] - 3-5 Days Time of Disposition: 11:40
== END 2018-05-30 11:43 | disposition home or self-care (01) ==
LOC: ED 10:08
DX: S80.862A Insect bite (nonvenomous), left lower leg, initial encounter (principal); S80.861A Insect bite (nonvenomous), right lower leg, initial encounter; F19.10 Other psychoactive substance abuse, uncomplicated; F25.1 Schizoaffective disorder, depressive type; F17.200 Nicotine dependence, unspecified, uncomplicated; Z88.0 Allergy status to penicillin; W57.XXXA Bitten or stung by nonvenomous insect and other nonvenomous arthropods, initial encounter; Y93.89 Activity, other specified; Y92.89 Other specified places as the place of occurrence of the external cause; Y99.8 Other external cause status
CPT/HCPCS: 96372; 99283; J1100

== ENCOUNTER 2018-09-01 07:27 | Emergency (ER) | payer MEDICAID ==
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
== END 2018-09-01 08:20 | disposition home or self-care (01) ==
LOC: ED 07:27
CPT/HCPCS: 99282

== ENCOUNTER 2018-12-14 22:43 | Emergency (ER) | payer MEDICAID ==
[2018-12-14 22:50] VITALS: BP 146/94
[2018-12-14 23:57] LABS: Basophils # (Auto) 0.1 K/mm3 (0.0-0.1); Basophils % (Auto) 1.1 % (0.0-1.8); Eosinophils # (Auto) 0.1 K/mm3 (0.0-0.4); Hematocrit 35.9 % (35.5-45.6); Hemoglobin 11.9 gm/dl (11.8-15.2); Lymphocytes # (Auto) 2.5 K/mm3 (1.2-5.4); Lymphocytes % (Auto) 35.6 % (13.4-35.0); Mean Corpuscular HGB Conc 33 % (32-34); Mean Corpuscular Volume 86 fl (84-94); Monocytes # (Auto) 0.6 K/mm3 (0.0-0.8); Monocytes % (Auto) 8.7 % (0.0-7.3); Platelet Count 333 K/mm3 (140-440); Red Blood Count 4.18 M/mm3 (3.65-5.03); Red Cell Distribution Width 13.5 % (13.2-15.2)
[2018-12-15 00:09] LABS: BUN/Creatinine Ratio 15; Blood Urea Nitrogen 20 mg/dL (9-20); Calcium 9.8 mg/dL (8.4-10.2); Hemolysis Index 5
[2018-12-15 02:28] LABS: Bilirubin,Urine NEG (Negative); Blood,Urine NEG (Negative); Color,Urine Yellow (Yellow); Hyaline Casts,Urine 1 /LPF; Mucus,Urine FEW /HPF
[2018-12-15 02:39] LABS: Benzodiazepines Screen,Urine PRESUMPTIVE NEGATIVE; Methadone Screen,Urine PRESUMPTIVE NEGATIVE; Opiate Screen,Urine PRESUMPTIVE NEGATIVE
[2018-12-15 03:04] LABS: Amphetamine Screen,Urine PRESUMPTIVE POSITIVE; Cannabinoid Screen,Urine PRESUMPTIVE POSITIVE; Cocaine Screen,Urine PRESUMPTIVE POSITIVE
== END 2018-12-15 08:25 ==
LOC: ED 22:43
DX: R10.30 Lower abdominal pain, unspecified (principal); Z53.21 Procedure and treatment not carried out due to patient leaving prior to being seen by health care provider
CPT/HCPCS: 36415; 80048; 80307; 81001; 85025; G0480; 80320

== ENCOUNTER 2019-02-14 09:41 | Observation (INO) | payer MEDICAID ==
[2019-02-14] MEDS ORDERED: IBUPROFEN PO ONE (10:06)
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
[2019-02-14 11:25] LABS: Basophils # (Auto) 0.1 K/mm3 (0.0-0.1); Basophils % (Auto) 0.5 % (0.0-1.8); Eosinophils % (Auto) 0.4 % (0.0-4.3); Hematocrit 37.5 % (35.5-45.6); Hemoglobin 12.4 gm/dl (11.8-15.2); Lymphocytes # (Auto) 2.5 K/mm3 (1.2-5.4); Lymphocytes % (Auto) 20.9 % (13.4-35.0); Mean Corpuscular HGB Conc 33 % (32-34); Mean Corpuscular Volume 89 fl (84-94); Monocytes # (Auto) 1.2 K/mm3 (0.0-0.8); Monocytes % (Auto) 10.3 % (0.0-7.3); Platelet Count 389 K/mm3 (140-440); Red Cell Distribution Width 15.2 % (13.2-15.2)
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
[2019-02-14 11:44] LABS: BUN/Creatinine Ratio 16; Blood Urea Nitrogen 22 mg/dL (9-20); Calcium 9.4 mg/dL (8.4-10.2); Hemolysis Index 7
--- NOTE | 2019-02-14 12:43 | Cat Scan Report ---
CT CHEST WITHOUT CONTRAST INDICATION / CLINICAL INFORMATION: pneumothorax, left sided chest pain. Left-sided chest pain and back pain for 2 weeks TECHNIQUE: Axial CT images were obtained through the chest without contrast. All CT scans at this location are p erformed using CT dose reduction for ALARA by means of automated exposure control. COMPARISON: Left ribs x-ray performed the same day FINDINGS: HEART: No significant abnormality. THORACIC AORTA: No significant abnormality. MEDIASTINUM and LEWIS: No significant abnormality. LUNGS: The lung parenchyma is within normal limits. No parenchymal disease is appreciated. PLEURA: No significant pleural effusion. A tiny left apical pneumothorax is confirmed on CT and estim ated at 1-2%. ADDITIONAL FINDINGS: None. UPPER ABDOMEN: No significant abnormality. SKELETAL SYSTEM: There is minimal dextrocurvature to the thoracic spine. No acute fracture is detecte d. IMPRESSION: Tiny left apical pneumothorax as described. Signer Name: Edmond Doyle Jr, MD Signed: 02/14/2019 12:39 PM Workstation Name: [id number]
[2019-02-14] MEDS ORDERED: MORPHINE IV PRN (19:29)
[2019-02-14] MEDS: PERCOCET 5/325 PO PRN (19:41)
[2019-02-14] MEDS ORDERED: TYLENOL PO PRN (22:13)
[2019-02-14] MEDS ORDERED: SODIUM CHLORIDE FLUSH SYRINGE 10 ML IV PRN (22:13)
[2019-02-14] MEDS ORDERED: ZOFRAN IV PRN (22:13)
[2019-02-14] MEDS ORDERED: DILAUDID IV PRN (22:13)
[2019-02-14] MEDS: PEPCID IV SCH (22:52)
[2019-02-14] MEDS ORDERED: NACL 0.9% 1000 ML 1,000 ML IV SCH (23:00)
[2019-02-15] MEDS: PERCOCET 5/325 PO PRN ×2 (04:42→11:11)
--- NOTE | 2019-02-15 04:57 | Event Note ---
Date: 02/14/19 See H/p in reports L chest contusion injury Small LApical Pneumothorax Pericarditis unlikely Obs for 24 hours
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
[2019-02-15 06:16] LABS: Alanine Aminotransferase 18 units/L (7-56); Albumin 3.7 g/dL (3.9-5); BUN/Creatinine Ratio 13; Blood Urea Nitrogen 16 mg/dL (9-20); Calcium 9.3 mg/dL (8.4-10.2); Hemolysis Index 4
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
[2019-02-15] MEDS: PEPCID IV SCH ×2 (11:11→22:43)
[2019-02-15] MEDS: SODIUM CHLORIDE FLUSH SYRINGE 10 ML IV SCH ×2 (11:15→22:43)
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
[2019-02-15] MEDS: MOBIC PO SCH ×2 (12:32→22:43)
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
[2019-02-15] MEDS: LOVENOX SUB-Q SCH (22:43)
--- NOTE | 2019-02-16 08:03 | Progress Note ---
Assessment and Plan - Patient Problems (1) Bipolar 1 disorder Current Visit: Yes Status: Acute (2) Pneumothorax Current Visit: Yes Status: Acute Qualifiers: Pneumothorax type: unspecified pneumothorax Qualified Code(s): J93.9 - Pneumothorax, unspecified Subjective Interval history: chest wall pain Objective Vital Signs - 12hr 02/15/19 02/16/19 22:50 04:45 Temperature 97.2 F L 98.4 F Pulse Rate 59 L 73 Respiratory 20 20 Rate Blood Pressure 136/100 133/91 O2 Sat by Pulse 100 99 Oximetry Constitutional: other (intubated agitated) Eyes: non-icteric Neck: supple Ascultation: Bilateral: clear Cardiovascular: regular rate and rhythm (tachycardiac) Gastrointestinal: normoactive bowel sounds, soft Integumentary: normal Extremities: no cyanosis Neurologic: normal mental status Psychiatric: mood appropriate CBC and BMP: 02/14/19 11:09 02/15/19 04:20 Abnormal lab findings: Abnormal Labs 02/14/19 02/14/19 02/14/19 11:09 11:09 11:09 WBC 11.7 H [place] % (Auto) 10.3 H [place] # 1.2 H Seg Neutrophils # 8.0 H Sodium 136 L BUN 22 H Glucose 72 L C-Reactive Protein 2.30 H Albumin 02/15/19 04:20 WBC [place] % (Auto) [place] # Seg Neutrophils # Sodium BUN Glucose C-Reactive Protein Albumin 3.7 L Chest x-ray: image reviewed
[2019-02-16] MEDS: PERCOCET 5/325 PO PRN ×2 (08:19→18:58)
--- NOTE | 2019-02-16 08:49 | Progress Note ---
Assessment and Plan 1. Chest pain probably secondary to chest wall contusion no evidence of rib fracture on CT scan of the chest 2. Small left apical pneumothorax etiology unclear 3. Schizoaffective disorder bipolar type Plan. Cardiac-frankel stable. Chest pain noncardiac in origin Subjective Date of service: 02/16/19 Interval history: No change Objective Vital Signs Temp Pulse Resp BP Pulse Ox 02/16/19 04:45 98.4 F 73 20 133/91 99 02/15/19 22:50 97.2 F L 59 L 20 136/100 100 02/15/19 17:44 97.6 F 64 18 138/99 99 02/15/19 11:56 98.5 F 18 110/72 02/15/19 10:00 64 20 - Physical Examination General: Appears Well, No Apparent Distress HEENT: Positive: PERRL, Mucus Membranes Moist Neck: Positive: neck supple, trachea midline Cardiac: Positive: Regular Rate, S1/S2 Lungs: Positive: clear to auscultation, No Wheeze, Rales, Rhonchi Neuro: Positive: Grossly Intact Abdomen: Positive: Soft, Active Bowel Sounds. Negative: Tender, Distended Skin: Positive: Clear Incision: Cardiac Cath Site Musculoskeletal: No Pain, Normal Range of Motion Extremities: Present: normal. Absent: edema
[2019-02-16] MEDS: MOBIC PO SCH ×2 (09:21→21:18)
[2019-02-16] MEDS: PEPCID IV SCH ×2 (09:21→21:19)
[2019-02-16] MEDS: SODIUM CHLORIDE FLUSH SYRINGE 10 ML IV SCH ×2 (11:01→21:20)
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
--- NOTE | 2019-02-16 13:53 | XRay Report ---
CHEST 2 VIEWS INDICATION / CLINICAL INFORMATION: Follow-up tiny left apical pneumothorax. COMPARISON: 02/14/2019. FINDINGS: SUPPORT DEVICES: None. HEART / MEDIASTINUM: The heart size and pulmonary vasculature are normal. LUNGS / PLEURA: There is a trace left pleural effusion. Tiny left apical pneumothorax has resolved. ADDITIONAL FINDINGS: No significant additional findings. IMPRESSION: Tiny left apical pneumothorax has resolved. Signer Name: Obinna Edwards MD Signed: 02/16/2019 1:49 PM Workstation Name: [id number]
[2019-02-16] MEDS: LOVENOX SUB-Q SCH (21:19)
[2019-02-17] MEDS: PERCOCET 5/325 PO PRN ×2 (07:11→13:32)
--- NOTE | 2019-02-17 08:59 | Discharge Summary ---
Providers - Providers Date of Admission: 02/14/19 13:00 Date of discharge: 02/17/19 Attending physician: GILES BURTON 02/14/19 22:13 Consult to Physician [CONS] Routine Comment: Consulting Provider: ROBYN SCHMITT Physician Instructions: Reason For Exam: pneumothorax 02/14/19 22:17 Consult to Cardiology [CONS] Routine Consulting Provider: EVE ONEILL Reason For Exam: r/o pericarditis 02/16/19 10:24 Consult to Case Management [CONS] Routine Services Needed at Discharge: Other Notified:: COPY LEFT FOR CM Additional Physician Instructions: mother concerned about placement 02/16/19 12:27 psychiatry consult [Consult to Mental Health] [CONS] Routine Reason For Exam: Bipolar disorder 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
[2019-02-17] MEDS ORDERED: PEPCID PO SCH (10:00)
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
[2019-02-17] MEDS: SODIUM CHLORIDE FLUSH SYRINGE 10 ML IV SCH (10:31)
[2019-02-17] MEDS: MOBIC PO SCH (10:31)
--- NOTE | 2019-02-17 11:59 | Progress Note ---
Assessment and Plan Chest pain likely secondary to chest wall contusion no evidence of rib fracture on CT scan of the chest Small left apical pneumothorax etiology unclear Schizoaffective disorder bipolar type Conservative cardiac management. Subjective Date of service: 02/17/19 Interval history: No cardiac complaints. Objective Vital Signs Temp Pulse Resp Resp BP Pulse Ox 02/17/19 07:11 18 02/17/19 06:00 18 02/16/19 22:18 18 02/16/19 22:15 98.2 F 57 L 16 144/100 99 02/16/19 21:28 20 02/16/19 21:18 18 02/16/19 17:37 98.2 F 64 16 115/83 98 02/16/19 12:10 98.0 F 58 L 16 139/96 98 - Physical Examination General: Appears Well, No Apparent Distress HEENT: Positive: PERRL Neck: Positive: neck supple, trachea midline Cardiac: Positive: Reg Rate and Rhythm Lungs: Positive: Normal Breath Sounds Neuro: Positive: Grossly Intact Abdomen: Positive: Soft, Active Bowel Sounds Extremities: Present: normal. Absent: edema
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
[2019-02-17 13:45] VITALS: BP 119/80
== END 2019-02-17 13:30 | disposition home or self-care (01) ==
LOC: ED 09:41 → 4A 13:00 → 3A 02-15 13:28
PROVIDERS: ADMIT Internal Medicine; ATTEND Internal Medicine
DX: S20.212A Contusion of left front wall of thorax, initial encounter (principal); M94.0 Chondrocostal junction syndrome [Tietze]; J93.9 Pneumothorax, unspecified; R94.31 Abnormal electrocardiogram [ECG] [EKG]; I31.9 Disease of pericardium, unspecified; F31.9 Bipolar disorder, unspecified; F25.0 Schizoaffective disorder, bipolar type; F17.210 Nicotine dependence, cigarettes, uncomplicated; Z79.899 Other long term (current) drug therapy; Y04.0XXA Assault by unarmed brawl or fight, initial encounter; Y93.89 Activity, other specified; Y92.9 Unspecified place or not applicable
CPT/HCPCS: 36415; 71046; 71101; 71250; 80048; 80053; 83036; 84484; 85025; 86140; 93005; 93010; 96372; 96374; 96375; 96376; 99284; G0378; J1170; J1650; J2270; J7030

== ENCOUNTER 2019-02-18 11:42 | Emergency (ER) | payer MEDICAID ==
[2019-02-18] MEDS ORDERED: APRESOLINE IV ONE (12:09)
--- NOTE | 2019-02-18 12:17 | Emergency Department Report ---
HPI - General Time Seen by Provider: 02/18/19 11:55 - HPI HPI: 33-year-old -[place] male presents to the emergency department with a complaint of having some chest pain and chest pressure and palpitations since earlier this morning. He admits to going to a democrat last night in which she consumed OxyContin, alcohol and marijuana. He also complains that his blood pressure is elevated but it appears that he noticed this only through triage. He denies having any personal history of hypertension. The patient was just discharged from this hospital yesterday after he spent some time here for a very small pneumothorax. He was evaluated by cardiology during his last visit for his chest/chest wall pain and conservative management was recommended at that time. Patient does have a history of schizophrenia and bipolar disorder. ED Past Medical Hx - Past Medical History Hx Psychiatric Treatment: Yes (Bipolar, Schizophrenia) Additional medical history: concussion 2018 head trauma - Surgical History Hx Coronary Stent: No Hx Pacemaker: No Hx Internal Defibrillator: No Hx Cholecystectomy: No Hx Appendectomy: No Hx Breast Surgery: No - Social History Smoking Status: Current Every Day Smoker - Medications Home Medications: Home Medications Medication Instructions Recorded Confirmed Last Taken Type Meloxicam [Mobic] 7.5 mg PO BID #20 tablet 02/17/19 02/18/19 Unknown Rx QUEtiapine [SEROquel] 100 mg PO QHS #14 tablet 02/17/19 02/18/19 Unknown Rx ED Review of Systems ROS: Stated complaint: CHEST PAIN/ETOH Other details as noted in HPI Comment: All other systems reviewed and negative Constitutional: denies: chills, fever Eyes: denies: eye pain, vision change ENT: denies: ear pain, throat pain Respiratory: denies: cough, shortness of breath Cardiovascular: chest pain, palpitations Gastrointestinal: denies: abdominal pain, vomiting Genitourinary: denies: dysuria, discharge Musculoskeletal: denies: back pain, arthralgia Skin: denies: rash, lesions Neurological: denies: headache, weakness Physical Exam - Physical Exam Physical Exam: GENERAL: The patient is well-developed well-nourished. HENT: Normocephalic. Atraumatic. Patient has moist mucous membranes. EYES: Extraocular motions are intact. NECK: Supple. Trachea is midline. CHEST/LUNGS: Clear to auscultation. There is no respiratory distress noted. HEART/CARDIOVASCULAR: Regular. There is no tachycardia. There is no murmur. ABDOMEN: Abdomen is soft, nontender. Patient has normal bowel sounds. There is no abdominal distention. SKIN: Skin is warm and dry. NEURO: The patient is awake, alert, and oriented. The patient is cooperative. The patient has no focal neurologic deficits. The patient has normal speech. MUSCULOSKELETAL: There is no tenderness or deformity. There is no evidence of acute injury. ED Medical Decision Making - Lab Data Result diagrams: 02/18/19 13:31 02/18/19 13:31 - EKG Data -: EKG Interpreted by Me EKG shows normal: sinus rhythm, axis, intervals (mildly prolonged MA interval), QRS complexes, ST-T waves (early repolarization) Rate: normal - EKG Data When compared to previous EKG there are: no significant change Interpretation: unchanged when compared t (02/14/19) - Radiology Data Radiology results: report reviewed, image reviewed interpreted by me: Chest x-ray does not show any acute process. There are no pleural effusions, obvious pneumonia and there is no pneumothorax. VENTILATION PERFUSION PULMONARY SCINTIGRAPHY HISTORY: Chest pain, elevated d-dimer COMPARISON: 02/18/2019 chest radiograph. TECHNIQUE: Radiopharmaceutical was inhaled. Tc-99m-MAA was then injected. Ventilation and perfusion images were acquired. RADIOPHARMACEUTICAL: 15 mCi of Xe-133 inhaled 5 mCi of Tc-99m-MAA injected FINDINGS: VENTILATION: No significant air trapping or defect. PERFUSION: No significant segmental or non-segmental defect. Additional Findings: None. IMPRESSION: 1. Low probability for pulmonary embolism. - Medical Decision Making This patient presents after admitting to smoking marijuana, taking OxyContin and drinking alcohol last night at a democrat that caused him to have some chest pain and palpitations. EKG does not show any ST elevation UT, ischemia or dysrhythmia. Chest x-ray does not show any acute process. Patient's labs show a urine drug screen positive for both cocaine and methamphetamines. The patient denied doing drugs but did later add that he also may have taken some ecstasy. At first, the patient was calm and appropriate, but he started having some increased agitation. He does have a history of bipolar disorder and schizophrenia and admits to some auditory and visual hallucinations. He says that he is seeing shadows and hearing voices. The voice telling him to harm other people. The patient was initially made a 2013 for some drug-induced psychosis. He required some Geodon to help with his agitation and psychosis. The patient had an elevated d-dimer and a VQ scan was initially ordered for him. At first he refused, but after I explained that we need to medically clear him to get him some psychiatric treatment he has now agreed. It has been reordered. If the VQ scan is completed and is normal, but the patient will be considered medically clear for psychiatric placement. - Differential Diagnosis drug-induced psychosis, schizophrenia, bipolar disorder, UT, PE Critical Care Time: No Critical care attestation.: If time is entered above; I have spent that time in minutes in the direct care of this critically ill patient, excluding procedure time. ED Disposition Clinical Impression: Bipolar 1 disorder, Polysubstance abuse Hypertension Qualifiers: Hypertension type: essential hypertension Qualified Code(s): I10 - Essential (primary) hypertension Drug-induced psychotic disorder Qualifiers: Complication of substance-induced condition: with unspecified complication Qualified Code(s): F19.959 - Other psychoactive substance use, unspecified with psychoactive substance-induced psychotic disorder, unspecified Disposition: DC/TX-65 PSY HOSP/PSY UNIT Is pt being admited?: No Condition: Stable Instructions: Hypertension (ED) Referrals: JARED YOUSIF MD [Primary Care Provider] - 3-5 Days Time of Disposition: 20:01
--- NOTE | 2019-02-18 13:00 | XRay Report ---
CHEST 2 VIEWS INDICATION / CLINICAL INFORMATION: Chest Pain. COMPARISON: 02/16/2019. FINDINGS: SUPPORT DEVICES: None. HEART / MEDIASTINUM: No significant abnormality. LUNGS / PLEURA: No significant pulmonary or pleural abnormality. No pneumothorax. ADDITIONAL FINDINGS: No significant additional findings. IMPRESSION: 1. No acute findings. No significant change from the prior study. Signer Name: Benjamín Martell MD Signed: 02/18/2019 12:56 PM Workstation Name: [id number]
[2019-02-18] MEDS ORDERED: NORVASC PO ONE (13:43)
[2019-02-18 13:48] LABS: Bilirubin,Urine NEG (Negative); Blood,Urine NEG (Negative); Color,Urine Straw (Yellow); Protein,Urine <15 mg/dL mg/dL (Negative); Urobilinogen,Urine < 2.0 mg/dL (<2.0); WBC,Urine < 1.0 /HPF (0.0-6.0)
[2019-02-18 13:55] LABS: Benzodiazepines Screen,Urine PRESUMPTIVE NEGATIVE; Cannabinoid Screen,Urine PRESUMPTIVE NEGATIVE; Methadone Screen,Urine PRESUMPTIVE NEGATIVE; Opiate Screen,Urine PRESUMPTIVE NEGATIVE
[2019-02-18 13:58] LABS: Basophils % (Auto) 0.3 % (0.0-1.8); Hematocrit 41.2 % (35.5-45.6); Hemoglobin 13.6 gm/dl (11.8-15.2); Lymphocytes # (Auto) 2.2 K/mm3 (1.2-5.4); Lymphocytes % (Auto) 16.6 % (13.4-35.0); Mean Corpuscular HGB Conc 33 % (32-34); Mean Corpuscular Volume 88 fl (84-94); Monocytes # (Auto) 0.9 K/mm3 (0.0-0.8); Platelet Count 396 K/mm3 (140-440); Red Blood Count 4.66 M/mm3 (3.65-5.03); Red Cell Distribution Width 15.2 % (13.2-15.2)
[2019-02-18 14:14] LABS: Amphetamine Screen,Urine PRESUMPTIVE POSITIVE; Cocaine Screen,Urine PRESUMPTIVE POSITIVE
[2019-02-18 14:28] LABS: Alanine Aminotransferase 30 units/L (7-56); BUN/Creatinine Ratio 13; Blood Urea Nitrogen 14 mg/dL (9-20); Calcium 10.7 mg/dL (8.4-10.2); Hemolysis Index 9
[2019-02-18] MEDS ORDERED: GEODON IM ONE ×2 (14:46→15:02)
[2019-02-18] MEDS ORDERED: WATER FOR INJ Sterile (PF) 10 ML ONE (14:48)
[2019-02-19] MEDS ORDERED: LOVENOX SUB-Q ONE (10:02)
[2019-02-19] MEDS ORDERED: ATIVAN IM ONE ×2 (11:00→16:50)
[2019-02-19] MEDS ORDERED: ATIVAN ONE (11:03)
--- NOTE | 2019-02-19 12:24 | Nuclear Medicine Report ---
VENTILATION PERFUSION PULMONARY SCINTIGRAPHY HISTORY: Chest pain, elevated d-dimer COMPARISON: 02/18/2019 chest radiograph. TECHNIQUE: Radiopharmaceutical was inhaled. Tc-99m-MAA was then injected. Ventilation and perfusion images were acquired. RADIOPHARMACEUTICAL: 15 mCi of Xe-133 inhaled 5 mCi of Tc-99m-MAA injected FINDINGS: VENTILATION: No significant air trapping or defect. PERFUSION: No significant segmental or non-segmental defect. Additional Findings: None. IMPRESSION: 1. Low probability for pulmonary embolism. Signer Name: Edmond Doyle Jr, MD Signed: 02/19/2019 12:19 PM Workstation Name: [id number]
--- NOTE | 2019-02-19 17:34 | Emergency Department Report ---
Blank Doc - Documentation Documentation: The nurse asked me to see the patient since the patient was placed in seclusion. Patient became agitated and violent with the staff and security. Patient was placed in seclusion room. [id number] done. Patient is appropriate for seclusion. Patient was released once he meets the criteria of being released from a seclusion room. See order. Order placed
[2019-02-20 08:04] VITALS: BP 131/90
--- NOTE | 2019-02-20 12:28 | Consultation ---
History of Present Illness - Reason for Consult Consult date: 02/20/19 Reason for consult: Mental Health Evaluation Requesting physician: VALDEZ SILVA - Chief Complaint Chief complaint: "I;m ready to go" - History of Present Psychiatric Illness 33 y.o. AA male who presented to the ER for chest pain. Psychiatry was consulted to see the patient because he endorsed HI's prior to being discharged from the ER. This patient is known to me.Today the patient was vague during the assessment. He stated, "I just want go." He was asked several times why was he placed on a 2013, he gave several different answers. Overall, the patient would not cooperate during the assessment. Medications and Allergies Allergies Allergy/AdvReac Type Severity Reaction Status Date / Time Penicillins Allergy Itching Verified 02/14/19 09:42 Home Medications Medication Instructions Recorded Confirmed Last Taken Type Meloxicam [Mobic] 7.5 mg PO BID #20 tablet 02/17/19 02/18/19 Unknown Rx QUEtiapine [SEROquel] 100 mg PO QHS #14 tablet 02/17/19 02/18/19 Unknown Rx Active Meds: Active Medications Quetiapine Fumarate (Seroquel) 100 mg PO QHS RONI Last Admin: 02/20/19 00:54 Dose: 100 mg Documented by: Past psychiatric history - Past Medical History Past Medical History: other (Unable to obtain ) Past Surgical History: Other (Unable to obtain ) - past Psychiatric treatment and history psychiatric treatment history: Several inpatient psy services. unable to obtain a [facility] psy hx. - Social History Social history: other (Homeless) Mental Status Exam - Vital signs Last Vital Signs Temp 97.7 F 02/20/19 07:00 Pulse 97 H 02/20/19 07:00 Resp 17 02/20/19 08:30 BP 131/90 02/20/19 07:00 Pulse Ox 98 02/20/19 07:00 - Exam Narrative exam: MSE: Appearance: calm Behavior: poor eye contact Speech: regular rate and tone Mood: "okay" Affect: congruent to mood Thought Process: unable to assess Thought Content: no gestures of SI/HI's Motor Activity: laying in bed Cognition: A/O x3 Insight: unable to assess Judgment: unable to assess Results Result Diagrams: 02/18/19 13:31 02/18/19 13:31 All other labs normal. Assessment and Plan Assessment and plan: Impression: Hx of Mood DO. Substance Use DO (cocaine). Today the patient was calm, but vague during the assessment. DDx: Substance Induced Mood DO Recommendation/Plan: Continue 1013 and Seroquel 100 mg PO HS for mood. Discussed possible metabolic side effects of Seroquel with the patient, he verbalized understanding. Dispo: The patient was accepted at [facility] for inpatient psy services. Will staff with Dr Calli Morales.
== END 2019-02-20 12:45 ==
LOC: EEVIPCON 11:42 → ED 11:42
DX: F31.89 Other bipolar disorder (principal); I10 Essential (primary) hypertension; F15.10 Other stimulant abuse, uncomplicated; F19.959 Other psychoactive substance use, unspecified with psychoactive substance-induced psychotic disorder, unspecified; F17.200 Nicotine dependence, unspecified, uncomplicated; F20.9 Schizophrenia, unspecified; Z88.0 Allergy status to penicillin
CPT/HCPCS: 36415; 71046; 80053; 80307; 81001; 82550; 84443; 84484; 85025; 85379; 93005; 93010; 96372; 99285; G0480; J1650; J2060; J3486; 78582; 80320; A9540; A9558

== ENCOUNTER 2019-07-07 05:12 | Emergency (ER) | payer MEDICAID ==
[2019-07-07 06:23] LABS: Bilirubin,Urine NEG (Negative); Blood,Urine NEG (Negative); Color,Urine Yellow (Yellow); Mucus,Urine FEW /HPF; Protein,Urine <15 mg/dL mg/dL (Negative); Urobilinogen,Urine < 2.0 mg/dL (<2.0)
[2019-07-07 06:31] LABS: Benzodiazepines Screen,Urine PRESUMPTIVE NEGATIVE; Cocaine Screen,Urine PRESUMPTIVE NEGATIVE; Methadone Screen,Urine PRESUMPTIVE NEGATIVE; Opiate Screen,Urine PRESUMPTIVE NEGATIVE
[2019-07-07 06:35] LABS: Basophils # (Auto) 0.1 K/mm3 (0.0-0.1); Basophils % (Auto) 0.7 % (0.0-1.8); Eosinophils % (Auto) 0.1 % (0.0-4.3); Hematocrit 40.5 % (35.5-45.6); Hemoglobin 13.5 gm/dl (11.8-15.2); Lymphocytes # (Auto) 1.8 K/mm3 (1.2-5.4); Lymphocytes % (Auto) 25.1 % (13.4-35.0); Mean Corpuscular HGB Conc 33 % (32-34); Mean Corpuscular Volume 89 fl (84-94); Monocytes # (Auto) 0.6 K/mm3 (0.0-0.8); Monocytes % (Auto) 8.3 % (0.0-7.3); Platelet Count 396 K/mm3 (140-440); Red Blood Count 4.56 M/mm3 (3.65-5.03); Red Cell Distribution Width 14.6 % (13.2-15.2)
[2019-07-07] MEDS ORDERED: ZIPRASIDONE 20 MG CAP PO ONE (06:42)
[2019-07-07] MEDS ORDERED: ZIPRASIDONE 20 MG CAP ONE (06:45)
[2019-07-07 06:48] LABS: Amphetamine Screen,Urine PRESUMPTIVE POSITIVE; Cannabinoid Screen,Urine PRESUMPTIVE POSITIVE
[2019-07-07 06:56] LABS: BUN/Creatinine Ratio 11; Blood Urea Nitrogen 16 mg/dL (9-20); Calcium 9.8 mg/dL (8.4-10.2); Hemolysis Index 2
[2019-07-07] MEDS ORDERED: buPROPion 75 MG TAB PO NR (07:09)
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
[2019-07-07] MEDS ORDERED: amLODIPine 5 MG TAB PO ONE (07:33)
[2019-07-07] MEDS ORDERED: ZIPRASIDONE MESYLATE 20 MG VIAL IM ONE (07:33)
[2019-07-07] MEDS ORDERED: WATER FOR INJ Sterile (PF) 10 ML ONE (07:45)
--- NOTE | 2019-07-07 09:44 | Consultation ---
History of Present Illness - Reason for Consult Consult date: 07/07/19 Reason for consult: Mental Health Evaluation Requesting physician: GENA ABDALLA - Chief Complaint Chief complaint: "Something isn't right" - History of Present Psychiatric Illness 33 y.o. AA male who presented to the ER for medication refill. This patient is known to me. Today the patient was calm, but somewhat vague during the assessment. He stated that she need his medications started. He stated that he was recently discharged from a mental health facility. He stated that he have not been compliant with his psy medication and increased his alcohol consumption (etoh)/recreational drug use, but cannot explain why. He stated that he is hearing voices, but would not elaborate what the voices are saying. He denies erratic sleep and a poor appetite. He is adamant that he need his medications restarted. He denies SI/HI's and AVH's. Medications and Allergies Allergies Allergy/AdvReac Type Severity Reaction Status Date / Time Penicillins Allergy Itching Verified 02/14/19 09:42 Home Medications Medication Instructions Recorded Confirmed Last Taken Type Meloxicam [Mobic] 7.5 mg PO BID #20 tablet 02/17/19 07/07/19 Unknown Rx Amlodipine Besylate [Norvasc] 5 mg PO DAILY #30 tablet 07/07/19 Unknown Rx QUEtiapine [SEROquel] 100 mg PO QHS #30 tablet 07/07/19 Unknown Rx Quetiapine Fumarate [SEROquel] 400 mg PO HS 07/07/19 07/07/19 Unknown History buPROPion [Wellbutrin] 150 mg PO ONCE #60 tablet 07/07/19 Unknown Rx buPROPion [Wellbutrin] 300 mg PO DAILY 07/07/19 07/07/19 Unknown History Active Meds: Active Medications Bupropion HCl (Wellbutrin) 150 mg PO ONCE NR Stop: 07/07/19 10:00 Last Admin: 07/07/19 08:09 Dose: 150 mg Documented by: Past psychiatric history - Past Medical History Past Medical History: No medical history Past Surgical History: No surgical history - past Psychiatric treatment and history psychiatric treatment history: Several inpatient psy services. Denies a fam psy hx. - Social History Social history: other (Reside at a shelter) Mental Status Exam - Vital signs Last Vital Signs Temp 98.4 F 11/25/19 07:00 Pulse 93 H 07/07/19 08:00 Resp 18 07/07/19 07:00 BP 158/98 07/07/19 08:00 Pulse Ox 97 07/07/19 07:00 - Exam Narrative exam: MSE: Appearance: calm, cooperative Behavior: regular eye contact Speech: regular rate and tone Mood: "strange" Affect: congruent to mood Thought Process: circumstantial Thought Content: denies SI/HI's and AVH''s Motor Activity: ambulatory Cognition: A/O x3 Insight: fair Judgment: variable Results Result Diagrams: 07/07/19 05:49 07/07/19 05:49 Abnormal lab results 07/07/19 07/07/19 07/07/19 Range/Units 05:49 05:49 05:49 [place] % (Auto) 8.3 H (0.0-7.3) % Glucose 133 H (75-100) mg/dL Salicylates < 0.3 L (2.8-20.0) mg/dL Acetaminophen (10.0-30.0) ug/mL 07/07/19 Range/Units 05:56 [place] % (Auto) (0.0-7.3) % Glucose (75-100) mg/dL Salicylates (2.8-20.0) mg/dL Acetaminophen < 5.0 L (10.0-30.0) ug/mL All other labs normal. Assessment and Plan Assessment and plan: Impression: Unspecified Mood DO with psy features. Substance Use DO (amphetamines). Cannabis Use DO. Alcohol Use DO. Today the patient was calm, but somewhat vague during the assessment. Recommendation/Plan: The patient will need a prescription for Seroquel 200 mg PO HS. Dispo: The patient can follow up with [facility] for outpatient psy/rehab services. Will staff with Dr Calli Morales.
[2019-07-07 10:03] VITALS: BP 144/84
[2019-07-07] MEDS ORDERED: QUEtiapine 200 MG TAB PO SCH (22:00)
[2019-07-07] MEDS ORDERED: QUEtiapine 100 MG TAB PO SCH (22:00)
== END 2019-07-07 10:01 | disposition home or self-care (01) ==
LOC: ED 05:12
DX: F20.9 Schizophrenia, unspecified (principal); I10 Essential (primary) hypertension; F31.9 Bipolar disorder, unspecified; F17.200 Nicotine dependence, unspecified, uncomplicated; Z79.899 Other long term (current) drug therapy; Z88.0 Allergy status to penicillin
CPT/HCPCS: 36415; 80048; 80307; 81001; 85025; 99283; J3486; 80320; G0480

== ENCOUNTER 2019-07-09 04:20 | Emergency (ER) | payer MEDICAID | END 2019-07-09 05:00 | disposition left against medical advice (07) | LOC: ED 04:20 | DX: Z53.21 Procedure and treatment not carried out due to patient leaving prior to being seen by health care provider (principal) ==

== ENCOUNTER 2019-09-13 14:03 | Emergency (ER) | payer MEDICAID ==
--- NOTE | 2019-09-13 14:50 | Emergency Department Report ---
Chief Complaint: Psych Stated Complaint: HBP MH EVAL Time Seen by Provider: 09/13/19 14:35 - Exam Vital Signs: Vital Signs 09/13/19 14:18 Temperature 98.2 F Pulse Rate 68 Respiratory 21 Rate Blood Pressure 131/86 [Right] O2 Sat by Pulse 100 Oximetry MSE screening note: Focused history and physical exam performed. Due to findings the following was ordered: ED Disposition for MSE Disposition: Z- MED SCREENING EXAM-LEFT Condition: Stable
--- NOTE | 2019-09-13 15:01 | Emergency Department Report ---
ED Psych HPI - General Chief Complaint: Psych Stated Complaint: HBP MH EVAL Time Seen by Provider: 09/13/19 14:35 Source: patient, EMS Mode of arrival: Stretcher - History of Present Illness Initial Comments: Patient is a 34-year-old male who is presenting with behavior. Patient initially checked in stating that he has elevated blood pressure and his blood pressure checked. Patient's blood pressure on arrival was within normal limits. When asked more details about the patient's blood pressure he states that a doctor told him his blood pressure was elevated. When asked which Dr. the patient seemed confused and was unable to to answer. Patient stated that he came via ambulance. I asked the patient was picked up from the embolus office and he stated no. I then asked the patient will see at home or was he had a store when picked up by the [employer]. Patient eventually admitted that he called 911 to get in touch with police. Patient stated that he wanted to get in touch with his mother and that he was having issues with a stone following. 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 Patient did not come from a physician's office. Patient denies homicidal suicidal ideations but he does have a very odd affect. - Related Data Home Medications Medication Instructions Recorded Confirmed Last Taken Quetiapine Fumarate [SEROquel] 400 mg PO HS 07/07/19 07/07/19 Unknown buPROPion [Wellbutrin] 300 mg PO DAILY 07/07/19 07/07/19 Unknown Previous Rx's Medication Instructions Recorded Last Taken Type Meloxicam [Mobic] 7.5 mg PO BID #20 tablet 02/17/19 Unknown Rx Amlodipine Besylate [Norvasc] 5 mg PO DAILY #30 tablet 07/07/19 Unknown Rx QUEtiapine [SEROquel] 100 mg PO QHS #30 tablet 07/07/19 Unknown Rx buPROPion [Wellbutrin] 150 mg PO ONCE #60 tablet 07/07/19 Unknown Rx Allergies Allergy/AdvReac Type Severity Reaction Status Date / Time Penicillins Allergy Itching Verified 02/14/19 09:42 ED Review of Systems ROS: Stated complaint: HBP MH EVAL Other details as noted in HPI Comment: Unobtainable due to pts medical conditions ED Past Medical Hx - Past Medical History Previous Medical History?: Yes Hx Hypertension: Yes Hx Psychiatric Treatment: Yes (Bipolar, Schizophrenia) Additional medical history: concussion 2018 head trauma - Surgical History Past Surgical History?: No Hx Coronary Stent: No Hx Pacemaker: No Hx Internal Defibrillator: No Hx Cholecystectomy: No Hx Appendectomy: No Hx Breast Surgery: No - Social History Smoking Status: Current Every Day Smoker Substance Use Type: None - Medications Home Medications: Home Medications Medication Instructions Recorded Confirmed Last Taken Type Meloxicam [Mobic] 7.5 mg PO BID #20 tablet 02/17/19 07/07/19 Unknown Rx Amlodipine Besylate [Norvasc] 5 mg PO DAILY #30 tablet 07/07/19 Unknown Rx QUEtiapine [SEROquel] 100 mg PO QHS #30 tablet 07/07/19 Unknown Rx Quetiapine Fumarate [SEROquel] 400 mg PO HS 07/07/19 07/07/19 Unknown History buPROPion [Wellbutrin] 150 mg PO ONCE #60 tablet 07/07/19 Unknown Rx buPROPion [Wellbutrin] 300 mg PO DAILY 07/07/19 07/07/19 Unknown History ED Physical Exam - General Limitations: No Limitations General appearance: alert, in no apparent distress, other (speaks with his eyes closed and is very elusive with answering questions) - Head Head exam: Present: atraumatic, normocephalic - Eye Eye exam: Present: normal appearance - ENT ENT exam: Present: mucous membranes moist - Neck Neck exam: Present: normal inspection - Respiratory Respiratory exam: Present: normal lung sounds bilaterally. Absent: respiratory distress, wheezes, rales, rhonchi - Cardiovascular Cardiovascular Exam: Present: regular rate, normal rhythm. Absent: systolic murmur, diastolic murmur, rubs, gallop - GI/Abdominal GI/Abdominal exam: Present: soft, normal bowel sounds. Absent: distended, tenderness, guarding, rebound - Rectal Rectal exam: Present: deferred - Extremities Exam Extremities exam: Present: normal inspection - Back Exam Back exam: Present: normal inspection - Neurological Exam Neurological exam: Present: alert, oriented X3 - Psychiatric Psychiatric exam: Present: normal affect, normal mood - Skin Skin exam: Present: warm, dry, intact, normal color. Absent: rash ED Course Vital Signs 09/13/19 09/13/19 09/13/19 14:14 14:15 14:18 Temperature 98.2 F Pulse Rate 74 74 68 Respiratory 21 11 L 21 Rate Blood Pressure 131/86 Blood Pressure 131/86 [Right] O2 Sat by Pulse 99 100 100 Oximetry 09/13/19 09/13/19 09/13/19 14:30 14:45 15:00 Temperature Pulse Rate 72 66 70 Respiratory 13 13 13 Rate Blood Pressure 141/83 126/74 129/80 Blood Pressure [Right] O2 Sat by Pulse Oximetry - Reevaluation(s) Reevaluation #1: 09/13/19 15:01 Patient has a very odd affect which may be stable and at his baseline. Patient will have a mental health evaluation to see if the patient is safe for discharge Reevaluation #2: 09/13/19 16:17 Patient was seen by her mental health pony rougher and the patient states he is not homicidal suicidal. No assessment he was able to get in touch with the patient's family states that they have offered to give the patient support. He does have insurance and has the means to see mental health assistance for his bipolar disorder but is refusing to obtain care. Patient does not appear to be a harm to himself this time. Patient states he is good and he would like to go home. Patient is medically cleared and will be discharged. Critical care attestation.: If time is entered above; I have spent that time in minutes in the direct care of this critically ill patient, excluding procedure time. ED Disposition Clinical Impression: Abnormal behavior Bipolar disorder Qualifiers: Active/Remission status: remission status unspecified Qualified Code(s): F31.9 - Bipolar disorder, unspecified Disposition: DC-01 TO HOME OR SELFCARE Is pt being admited?: No Does the pt Need Aspirin: No Condition: Stable Instructions: Bipolar Disorder (ED) Additional Instructions: Please follow up with your primary care physician. Time of Disposition: 16:18
[2019-09-13 15:06] VITALS: BP 129/80
== END 2019-09-13 16:00 | disposition home or self-care (01) ==
LOC: ED 14:03
DX: F31.9 Bipolar disorder, unspecified (principal); F17.200 Nicotine dependence, unspecified, uncomplicated; Z79.899 Other long term (current) drug therapy; Z88.0 Allergy status to penicillin

== ENCOUNTER 2019-09-14 05:07 | Emergency (ER) | payer MEDICAID ==
--- NOTE | 2019-09-14 08:22 | Emergency Department Report ---
ED General Adult HPI - General Chief complaint: High BP Stated complaint: ELEVATED BLOOD PRESSURE Time Seen by Provider: 09/14/19 07:32 Source: patient Mode of arrival: Stretcher Limitations: No Limitations - History of Present Illness Initial comments: This is a 34-year-old male nontoxic, well nourished in appearance, no acute signs of distress presents to the ED with c/o of hypertension. Patient was seen yesterday for same complaint and was discharged. Patient stated that today he did a little bit of crystal meth and checked his blood pressure that was elevated. Patient otherwise denies any headache, chest pain, short of breath, fever, chills, nausea, vomiting, headache or stiff neck. Patient denies any neck pain or back pain. Denies any urinary symptoms. Patient is otherwise asymptomatic. Patient stated allergies to penicillin. Past medical history includes psych. Denies any suicidal or homicidal ideations. MD Complaint: HTN Severity scale (0 -10): 0 Worsens with: none Associated Symptoms: denies other symptoms. denies: confusion, chest pain, cough, diaphoresis, fever/chills, headaches, loss of appetite, malaise, nausea/vomiting, rash, seizure, shortness of breath, syncope, weakness - Related Data Previous Rx's Medication Instructions Recorded Last Taken Type Meloxicam [Mobic] 7.5 mg PO BID #20 tablet 02/17/19 Unknown Rx Amlodipine Besylate [Norvasc] 5 mg PO DAILY #30 tablet 07/07/19 Unknown Rx QUEtiapine [SEROquel] 100 mg PO QHS #30 tablet 09/14/19 Unknown Rx Quetiapine Fumarate [SEROquel] 400 mg PO HS #30 tab 09/14/19 Unknown Rx buPROPion [Wellbutrin] 150 mg PO ONCE #60 tablet 09/14/19 Unknown Rx buPROPion [Wellbutrin] 300 mg PO DAILY #30 tab 09/14/19 Unknown Rx Allergies Allergy/AdvReac Type Severity Reaction Status Date / Time Penicillins Allergy Itching Verified 02/14/19 09:42 ED Review of Systems ROS: Stated complaint: ELEVATED BLOOD PRESSURE Other details as noted in HPI Constitutional: denies: chills, fever Eyes: denies: eye pain, eye discharge, vision change ENT: denies: ear pain, throat pain Respiratory: denies: cough, shortness of breath, wheezing Cardiovascular: denies: chest pain, palpitations Endocrine: no symptoms reported Gastrointestinal: denies: abdominal pain, nausea, diarrhea Genitourinary: denies: urgency, dysuria Musculoskeletal: denies: back pain, joint swelling, arthralgia Skin: denies: rash, lesions Neurological: denies: headache, weakness, paresthesias Psychiatric: denies: anxiety, depression Hematological/Lymphatic: denies: easy bleeding, easy bruising ED Past Medical Hx - Past Medical History Previous Medical History?: Yes Hx Hypertension: Yes Hx Psychiatric Treatment: Yes (Bipolar, Schizophrenia) Additional medical history: concussion 2018 head trauma - Surgical History Hx Coronary Stent: No Hx Pacemaker: No Hx Internal Defibrillator: No Hx Cholecystectomy: No Hx Appendectomy: No Hx Breast Surgery: No - Social History Smoking Status: Current Every Day Smoker Substance Use Type: Cocaine, Marijuana - Medications Home Medications: Home Medications Medication Instructions Recorded Confirmed Last Taken Type Meloxicam [Mobic] 7.5 mg PO BID #20 tablet 02/17/19 07/07/19 Unknown Rx Amlodipine Besylate [Norvasc] 5 mg PO DAILY #30 tablet 07/07/19 Unknown Rx QUEtiapine [SEROquel] 100 mg PO QHS #30 tablet 09/14/19 Unknown Rx Quetiapine Fumarate [SEROquel] 400 mg PO HS #30 tab 09/14/19 Unknown Rx buPROPion [Wellbutrin] 150 mg PO ONCE #60 tablet 09/14/19 Unknown Rx buPROPion [Wellbutrin] 300 mg PO DAILY #30 tab 09/14/19 Unknown Rx ED Physical Exam - General Limitations: No Limitations General appearance: alert, in no apparent distress - Head Head exam: Present: atraumatic, normocephalic - Eye Eye exam: Present: normal appearance - Neck Neck exam: Present: normal inspection, full ROM. Absent: tenderness, meningismus, lymphadenopathy - Respiratory Respiratory exam: Present: normal lung sounds bilaterally. Absent: respiratory distress, wheezes, rales, rhonchi, stridor, chest wall tenderness, accessory muscle use, decreased breath sounds, prolonged expiratory - Cardiovascular Cardiovascular Exam: Present: regular rate, normal rhythm, normal heart sounds. Absent: bradycardia, tachycardia, irregular rhythm, systolic murmur, diastolic murmur, rubs, gallop - Extremities Exam Extremities exam: Present: normal inspection, full ROM - Back Exam Back exam: Present: normal inspection, full ROM. Absent: tenderness, CVA tenderness (R), CVA tenderness (L), muscle spasm, paraspinal tenderness, vertebral tenderness, rash noted - Neurological Exam Neurological exam: Present: alert, oriented X3, normal gait - Psychiatric Psychiatric exam: Present: normal affect, normal mood. Absent: depressed, agitated, anxious, flat affect, manic, homicidal ideation, suicidal ideation - Skin Skin exam: Present: warm, dry, intact, normal color. Absent: rash ED Course Vital Signs 09/14/19 09/14/19 09/14/19 05:12 05:13 05:16 Temperature 97.5 F L 97.5 F L Pulse Rate 84 77 Respiratory 18 18 Rate Blood Pressure 172/103 158/102 [Right] O2 Sat by Pulse 99 98 Oximetry 09/14/19 12:41 Temperature Pulse Rate 77 Respiratory 18 Rate Blood Pressure 142/82 [Right] O2 Sat by Pulse 98 Oximetry - Reevaluation(s) Reevaluation #1: 09/14/19 08:22 Patient is speaking in full sentences with no signs of distress noted. Reevaluation #2: 09/14/19 12:46 At the time of discharge, patient has told the nurse and social media intern that he needs assistance with rehab. Patient then started to say that he is thinking of harming self. Will place patient on psych hold until patient is examined by psych. Reevaluation #3: 09/14/19 17:04 Patient has been consulted by psych and as per psych consult patient can be discharged and is not a candidate for 1013. Also was instructed to refill patient's medication for psych meds. Upon exam when I reexamined the patient patient denies any suicidal or homicidal ideation and stated this have a safe place to go home. ED Medical Decision Making - Lab Data Result diagrams: 09/14/19 13:03 09/14/19 13:03 - Medical Decision Making This is a 34-year-old male that presents with suicidal ideation and hypertension after doing crystal meth. Patient is stable and was examined by me. According to ACEP hypertension guidelines: (1) In ED patients with asymptomatic markedly elevated blood pressure, routine screening for acute target organ injury (eg, serum creatinine, urinalysis, ECG) is not required; (1) In patients with asymptomatic markedly elevated blood pressure, routine ED medical intervention is not required. Patient is admitted for psych consult. 1705: Patient currently denies any suicidal homicidal ideation. As per psych consult patient can be discharged with proper medication refill. As per psych consult denies patient for admission for 1013. Critical care attestation.: If time is entered above; I have spent that time in minutes in the direct care of this critically ill patient, excluding procedure time. ED Disposition Clinical Impression: Medication refill Hypertension Qualifiers: Hypertension type: unspecified Qualified Code(s): I10 - Essential (primary) hypertension Bipolar disorder Qualifiers: Active/Remission status: remission status unspecified Qualified Code(s): F31.9 - Bipolar disorder, unspecified Disposition: DC-01 TO HOME OR SELFCARE Is pt being admited?: No Does the pt Need Aspirin: No Instructions: Hypertension (ED) Additional Instructions: Follow-up with a primary care doctor in 3-5 days or if symptoms worsen and continue return to emergency room as soon as possible. Prescriptions: QUEtiapine [SEROquel] 100 mg PO QHS #30 tablet Quetiapine Fumarate [SEROquel] 400 mg PO HS #30 tab buPROPion [Wellbutrin] 150 mg PO ONCE #60 tablet buPROPion [Wellbutrin] 300 mg PO DAILY #30 tab Referrals: PRIMARY CAREMD [Primary Care Provider] - 3-5 Days CYNTHIA MCNAMARA MD [Staff Physician] - 3-5 Days [facility] [Outside] - 3-5 Days
[2019-09-14 12:42] VITALS: BP 142/82
[2019-09-14 13:37] LABS: Basophils % (Auto) 0.5 % (0.0-1.8); Eosinophils % (Auto) 0.1 % (0.0-4.3); Hemoglobin 13.4 gm/dl (11.8-15.2); Lymphocytes # (Auto) 1.7 K/mm3 (1.2-5.4); Lymphocytes % (Auto) 20.3 % (13.4-35.0); Monocytes # (Auto) 0.7 K/mm3 (0.0-0.8); Monocytes % (Auto) 8.5 % (0.0-7.3)
[2019-09-14 13:44] LABS: Hematocrit 39.1 % (35.5-45.6); Mean Corpuscular HGB Conc 34 % (32-34); Mean Corpuscular Volume 88 fl (84-94); Platelet Count 390 K/mm3 (140-440); Red Blood Count 4.42 M/mm3 (3.65-5.03)
[2019-09-14 13:55] LABS: Alanine Aminotransferase 21 units/L (7-56); Albumin 5.3 g/dL (3.9-5); BUN/Creatinine Ratio 10; Blood Urea Nitrogen 11 mg/dL (9-20); Calcium 10.7 mg/dL (8.4-10.2); Hemolysis Index 1
== END 2019-09-14 18:05 | disposition home or self-care (01) ==
LOC: ED 05:07
DX: I10 Essential (primary) hypertension (principal); F31.9 Bipolar disorder, unspecified; Z76.0 Encounter for issue of repeat prescription; F17.200 Nicotine dependence, unspecified, uncomplicated; F14.10 Cocaine abuse, uncomplicated; F12.10 Cannabis abuse, uncomplicated; Z79.899 Other long term (current) drug therapy; Z88.0 Allergy status to penicillin
CPT/HCPCS: 36415; 80053; 80320; 85025; G0480

== ENCOUNTER 2019-11-22 03:09 | Emergency (ER) | payer MEDICAID ==
--- NOTE | 2019-11-22 03:41 | Emergency Department Report ---
ED Psych HPI - General Chief Complaint: Psych Stated Complaint: SI/HI/MH EVAL Time Seen by Provider: 11/22/19 03:35 Source: patient, EMS Mode of arrival: Ambulatory - History of Present Illness Initial Comments: 34-year-old male with history of bipolar and schizophrenia presents to ED with SI and HI. Patient was picked up from gas station by police. He states he called 911 because he is having auditory hallucinations with voices telling him negative things such as he is not worth anything. Patient states this is causing him to feel suicidal, with plans to jump in front of a moving vehicle. Patient reports having homicidal ideations earlier but states that has currently resolved. MD Complaint: suicidal ideation -: days(s) (3) Associated Psychiatric Symptoms: suicidal ideation, homicidal ideation, auditory hallucinations Quality: constant Improves With: medication Context: not taking psychiatric Associated Symptoms: denies other symptoms Treatments Prior to Arrival: none If Self Harm: has plan Details of Plan: To run in front of a moving vehicle - Related Data Previous Rx's Medication Instructions Recorded Last Taken Type Amlodipine Besylate [Norvasc] 5 mg PO DAILY #30 tablet 07/07/19 Unknown Rx Quetiapine Fumarate [SEROquel] 400 mg PO HS #30 tab 09/14/19 Unknown Rx Allergies Allergy/AdvReac Type Severity Reaction Status Date / Time Penicillins Allergy Itching Verified 02/14/19 09:42 ED Review of Systems ROS: Stated complaint: SI/HI/MH EVAL Other details as noted in HPI Comment: All other systems reviewed and negative Psychiatric: auditory hallucinations, suicidal thoughts. denies: homicidal thoughts ED Past Medical Hx - Past Medical History Previous Medical History?: Yes Hx Hypertension: Yes Hx Psychiatric Treatment: Yes (Bipolar, Schizophrenia) Additional medical history: concussion 2018 head trauma - Surgical History Hx Coronary Stent: No Hx Pacemaker: No Hx Internal Defibrillator: No Hx Cholecystectomy: No Hx Appendectomy: No Hx Breast Surgery: No - Social History Smoking Status: Current Every Day Smoker Substance Use Type: Alcohol - Medications Home Medications: Home Medications Medication Instructions Recorded Confirmed Last Taken Type Amlodipine Besylate [Norvasc] 5 mg PO DAILY #30 tablet 07/07/19 11/22/19 Unknown Rx Quetiapine Fumarate [SEROquel] 400 mg PO HS #30 tab 09/14/19 11/22/19 Unknown Rx ED Physical Exam - General Limitations: No Limitations General appearance: alert, in no apparent distress - Head Head exam: Present: atraumatic, normocephalic - Eye Eye exam: Present: normal appearance, EOMI - ENT ENT exam: Present: mucous membranes moist - Neck Neck exam: Present: normal inspection - Respiratory Respiratory exam: Present: normal lung sounds bilaterally. Absent: respiratory distress - Cardiovascular Cardiovascular Exam: Present: regular rate, normal rhythm - GI/Abdominal GI/Abdominal exam: Absent: distended - Extremities Exam Extremities exam: Present: normal inspection - Neurological Exam Neurological exam: Present: alert, oriented X3 - Psychiatric Psychiatric exam: Present: normal affect, normal mood - Skin Skin exam: Present: warm, dry ED Course Vital Signs 11/22/19 11/22/19 11/22/19 03:24 03:59 07:32 Temperature 97.9 F 98.8 F Pulse Rate 100 H 100 H 97 H Respiratory 17 18 Rate Blood Pressure 179/117 179/117 Blood Pressure 162/91 [Left] O2 Sat by Pulse 99 96 Oximetry 11/22/19 16:18 Temperature 98.8 F Pulse Rate 112 H Respiratory 16 Rate Blood Pressure Blood Pressure 169/80 [Left] O2 Sat by Pulse 100 Oximetry ED Medical Decision Making - Lab Data Result diagrams: 11/22/19 03:52 11/22/19 03:52 Critical care attestation.: If time is entered above; I have spent that time in minutes in the direct care of this critically ill patient, excluding procedure time. ED Disposition Clinical Impression: Psychosis Disposition: DC/TX-65 PSY HOSP/PSY UNIT Is pt being admited?: No Condition: Stable Referrals: PRIMARY CARE, [Primary Care Provider] - 3-5 Days
[2019-11-22] MEDS: amLODIPine 5 MG TAB PO SCH ×2 (03:59→09:46)
[2019-11-22 04:27] LABS: Basophils # (Auto) 0.1 K/mm3 (0.0-0.1); Eosinophils % (Auto) 0.1 % (0.0-4.3); Hematocrit 39.4 % (35.5-45.6); Hemoglobin 13.1 gm/dl (11.8-15.2); Lymphocytes # (Auto) 1.7 K/mm3 (1.2-5.4); Lymphocytes % (Auto) 26.4 % (13.4-35.0); Mean Corpuscular HGB Conc 33 % (32-34); Mean Corpuscular Volume 89 fl (84-94); Monocytes # (Auto) 0.4 K/mm3 (0.0-0.8); Monocytes % (Auto) 6.8 % (0.0-7.3); Red Blood Count 4.41 M/mm3 (3.65-5.03); Red Cell Distribution Width 13.9 % (13.2-15.2)
[2019-11-22 04:34] LABS: Platelet Count 407 K/mm3 (140-440)
[2019-11-22 04:38] LABS: Bilirubin,Urine NEG (Negative); Blood,Urine NEG (Negative); Color,Urine Yellow (Yellow); Mucus,Urine FEW /HPF; Protein,Urine <15 mg/dL mg/dL (Negative); Urobilinogen,Urine < 2.0 mg/dL (<2.0)
[2019-11-22 04:52] LABS: Benzodiazepines Screen,Urine PRESUMPTIVE NEGATIVE; Cocaine Screen,Urine PRESUMPTIVE NEGATIVE; Methadone Screen,Urine PRESUMPTIVE NEGATIVE; Opiate Screen,Urine PRESUMPTIVE NEGATIVE
[2019-11-22 04:58] LABS: BUN/Creatinine Ratio 11; Blood Urea Nitrogen 13 mg/dL (9-20); Calcium 9.7 mg/dL (8.4-10.2); Hemolysis Index 4
[2019-11-22 05:19] LABS: Amphetamine Screen,Urine PRESUMPTIVE POSITIVE; Cannabinoid Screen,Urine PRESUMPTIVE POSITIVE
[2019-11-22] MEDS ORDERED: ACETAMINOPHEN 325 MG TAB ONE (09:43)
[2019-11-22] MEDS ORDERED: ACETAMINOPHEN 325 MG TAB PO ONE (09:45)
[2019-11-22] MEDS ORDERED: ZIPRASIDONE MESYLATE 20 MG VIAL IM ONE ×2 (11:03→11:05)
[2019-11-22] MEDS ORDERED: LORazepam 1 MG TAB PO ONE (11:05)
[2019-11-22 16:20] VITALS: BP 169/80
[2019-11-22] MEDS ORDERED: QUEtiapine 100 MG TAB PO SCH (22:00)
== END 2019-11-22 17:15 ==
LOC: ED 03:09
DX: F29 Unspecified psychosis not due to a substance or known physiological condition (principal); R45.851 Suicidal ideations; R45.850 Homicidal ideations; F31.9 Bipolar disorder, unspecified; F20.9 Schizophrenia, unspecified; F17.200 Nicotine dependence, unspecified, uncomplicated; Z79.899 Other long term (current) drug therapy; Z88.0 Allergy status to penicillin
CPT/HCPCS: 36415; 80048; 80307; 81001; 85025; 96372; 99284; J3486; 80320; G0480

== ENCOUNTER 2020-12-12 23:42 | Emergency (ER) | payer MEDICAID ==
[2020-12-13 00:05] VITALS: BP 149/101
== END 2020-12-13 05:30 | disposition left against medical advice (07) ==
LOC: ED 23:42
DX: R00.2 Palpitations (principal); Z53.21 Procedure and treatment not carried out due to patient leaving prior to being seen by health care provider
CPT/HCPCS: 93005

== ENCOUNTER 2021-04-23 19:56 | Emergency (ER) | payer MEDICAID ==
[2021-04-23 20:33] VITALS: BP 123/76
== END 2021-04-23 21:16 | disposition left against medical advice (07) ==
LOC: ED 19:56
DX: Z04.6 Encounter for general psychiatric examination, requested by authority (principal); Z53.21 Procedure and treatment not carried out due to patient leaving prior to being seen by health care provider

== ENCOUNTER 2021-12-12 14:16 | Emergency (ER) | payer MEDICAID ==
[2021-12-12 15:38] VITALS: BP 140/85
[2021-12-12 16:28] LABS: Basophils # (Auto) 0.1 K/mm3 (0.0-0.1); Basophils % (Auto) 0.7 % (0.0-1.8); Eosinophils % (Auto) 0.1 % (0.0-4.3); Hematocrit 35.3 % (35.5-45.6); Hemoglobin 11.6 gm/dl (11.8-15.2); Lymphocytes # (Auto) 1.8 K/mm3 (1.2-5.4); Lymphocytes % (Auto) 19.3 % (13.4-35.0); Mean Corpuscular HGB Conc 33 % (32-34); Mean Corpuscular Volume 83 fl (84-94); Platelet Count 354 K/mm3 (140-440); Red Blood Count 4.27 M/mm3 (3.65-5.03); Red Cell Distribution Width 18.7 % (13.2-15.2)
[2021-12-12 16:29] LABS: Bilirubin,Urine NEG (Negative); Blood,Urine LG (Negative); Color,Urine Yellow (Yellow); Urobilinogen,Urine < 2.0 mg/dL (<2.0)
[2021-12-12 16:31] LABS: RBC,Urine < 1.0 /HPF (0.0-6.0); WBC,Urine < 1.0 /HPF (0.0-6.0)
[2021-12-12 16:35] LABS: Amphetamine Screen,Urine PRESUMPTIVE POSITIVE; Benzodiazepines Screen,Urine PRESUMPTIVE POSITIVE; Cannabinoid Screen,Urine PRESUMPTIVE POSITIVE; Cocaine Screen,Urine PRESUMPTIVE POSITIVE; Methadone Screen,Urine PRESUMPTIVE NEGATIVE; Opiate Screen,Urine PRESUMPTIVE NEGATIVE
[2021-12-12 16:44] LABS: BUN/Creatinine Ratio 15; Blood Urea Nitrogen 19 mg/dL (9-20); Calcium 10.2 mg/dL (8.4-10.2); Hemolysis Index 26
--- NOTE | 2021-12-12 19:25 | Emergency Department Report ---
ED Psych HPI - General Chief Complaint: Psych Stated Complaint: PSYCH Time Seen by Provider: 12/12/21 14:40 Source: EMS Mode of arrival: Stretcher Limitations: Altered Mental Status - History of Present Illness MD Complaint: altered mental status, other (confusion , bizarre behaviour ) Associated Psychiatric Symptoms: racing thoughts History of same: No Quality: intermittent Improves With: none Worsens With: none Associated Symptoms: confusion. denies: denies other symptoms - Related Data Previous Rx's Medication Instructions Recorded Last Taken Type Amlodipine Besylate [Norvasc] 5 mg PO DAILY #30 tablet 07/07/19 Unknown Rx Quetiapine Fumarate [SEROquel] 400 mg PO HS #30 tab 09/14/19 Unknown Rx QUEtiapine [SEROquel] 100 mg PO QHS 30 Days #30 12/13/21 Unknown Rx buPROPion XL [Wellbutrin Xl] 150 mg PO DAILY 30 Days #30 12/13/21 Unknown Rx Allergies Allergy/AdvReac Type Severity Reaction Status Date / Time Penicillins Allergy Itching Verified 12/13/21 04:54 ED Review of Systems ROS: Stated complaint: PSYCH Other details as noted in HPI Constitutional: denies: chills, fever Eyes: denies: eye pain, eye discharge, vision change ENT: denies: ear pain, throat pain Respiratory: denies: cough, shortness of breath, wheezing Cardiovascular: denies: chest pain, palpitations Endocrine: no symptoms reported Gastrointestinal: denies: abdominal pain, nausea, diarrhea Genitourinary: denies: urgency, dysuria Musculoskeletal: denies: back pain, joint swelling, arthralgia Skin: denies: rash, lesions Neurological: denies: headache, weakness, paresthesias Psychiatric: denies: anxiety, depression Hematological/Lymphatic: denies: easy bleeding, easy bruising ED Past Medical Hx - Past Medical History Hx Hypertension: Yes Hx Psychiatric Treatment: Yes (Bipolar, Schizophrenia) Additional medical history: concussion 2018 head trauma - Surgical History Hx Coronary Stent: No Hx Pacemaker: No Hx Internal Defibrillator: No Hx Cholecystectomy: No Hx Appendectomy: No Hx Breast Surgery: No - Social History Smoking Status: Never Smoker Substance Use Type: None - Medications Home Medications: Home Medications Medication Instructions Recorded Confirmed Last Taken Type Amlodipine Besylate [Norvasc] 5 mg PO DAILY #30 tablet 07/07/19 11/22/19 Unknown Rx Quetiapine Fumarate [SEROquel] 400 mg PO HS #30 tab 09/14/19 11/22/19 Unknown Rx QUEtiapine [SEROquel] 100 mg PO QHS 30 Days #30 12/13/21 Unknown Rx buPROPion XL [Wellbutrin Xl] 150 mg PO DAILY 30 Days #30 12/13/21 Unknown Rx ED Physical Exam - General Limitations: Altered Mental Status General appearance: alert, anxious - Head Head exam: Present: atraumatic, normocephalic - Eye Eye exam: Present: normal appearance - ENT ENT exam: Present: mucous membranes moist - Neck Neck exam: Present: normal inspection - Respiratory Respiratory exam: Present: normal lung sounds bilaterally. Absent: respiratory distress - Cardiovascular Cardiovascular Exam: Present: regular rate, normal rhythm. Absent: systolic murmur, diastolic murmur, rubs, gallop - GI/Abdominal GI/Abdominal exam: Present: soft, normal bowel sounds - Rectal Rectal exam: Present: deferred - Extremities Exam Extremities exam: Present: normal inspection - Back Exam Back exam: Present: normal inspection - Neurological Exam Neurological exam: Present: alert, oriented X3 - Psychiatric Psychiatric exam: Present: anxious, flat affect - Skin Skin exam: Present: warm, dry, intact, normal color. Absent: rash ED Course Vital Signs 12/12/21 12/12/21 12/12/21 14:22 15:36 15:47 Temperature 98.2 F Pulse Rate 84 75 Respiratory 16 12 Rate Blood Pressure 117/86 140/85 [Left] O2 Sat by Pulse 99 100 Oximetry 12/13/21 03:00 Temperature Pulse Rate Respiratory Rate Blood Pressure [Left] O2 Sat by Pulse 100 Oximetry ED Medical Decision Making - Lab Data Result diagrams: 12/12/21 16:15 12/12/21 16:15 Critical care attestation.: If time is entered above; I have spent that time in minutes in the direct care of this critically ill patient, excluding procedure time. ED Disposition Clinical Impression: Substance abuse Disposition: 30 STILL A PATIENT Is pt being admited?: No Does the pt Need Aspirin: No Condition: Stable Additional Instructions: Professional and Agency Contacts To help [facility](05/03) [place] Crisis Line: Suicide Prevention Line: Crisis Text Line: Text START to [phone] Emergency: 911 Outpatient COMMUNITY Behavioral Health Resources: DEDANIELB: [facility] [address] [place], [place] [address] ANDREINA: [facility] [address] [place] [address] PASTOR: [facility] - [address] [place] [address] Sunday thru Sunday - 8am - 5pm VALDOSTA: [facility] Address: [address], [place] [address] AMBROCIO: [facility] Address: [address] [place] [address] Sunday thru Sunday- 7am-2pm [facility] Address: [address] [place] [address] Sunday thru Sunday: 8:30AM-5PM In case of an emergency, please contact the following numbers: [place] Crisis and Access Line: Number: Crisis Text Line: (Text START) Number: 088584 Suicide Prevention Line: Number: Emergency Number: 911 SUBSTANCE ABUSE PROGRAMS: [facility]: Location: [place], [place] [employer]! Address: [address] [place] [id number] [facility]: Address: [address] [place] [address] [facility]: Address: [address] [place] [address] [facility]: Address: [address] [place] [address] [facility] Address: [address] [place] [address]. Please contact above numbers to attempt placement into free based program. Medicaid Programs: [facility]: Address: [address] [place] [address], [place] [address] [facility]: Address: [address] [place] [address] Prescriptions: QUEtiapine [SEROquel] 100 mg PO QHS 30 Days #30 buPROPion XL [Wellbutrin Xl] 150 mg PO DAILY 30 Days #30 Referrals: PRIMARY CARE, [Primary Care Provider] - 3-5 Days
[2021-12-12] MEDS ORDERED: ZIPRASIDONE MESYLATE 20 MG VIAL IM ONE (20:08)
[2021-12-12] MEDS ORDERED: HALOPERIDOL LACTATE 5 MG/1 ML INJ IM ONE (21:06)
[2021-12-12] MEDS ORDERED: diphenhydrAMINE 50 MG/ML VIAL IM ONE (21:06)
[2021-12-12] MEDS ORDERED: LORazepam 2 MG/ML VIAL IM ONE (21:15)
[2021-12-13] MEDS ORDERED: HALOPERIDOL LACTATE 5 MG/1 ML INJ ONE (04:52)
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
--- NOTE | 2021-12-13 11:25 | Event Note ---
Date: 12/13/21 vss , medically cleared assessed by psych , ok to d/c home and restart home meds
== END 2021-12-13 13:10 | disposition still patient (30) ==
LOC: ED 14:16
DX: F19.10 Other psychoactive substance abuse, uncomplicated (principal); I10 Essential (primary) hypertension; F31.9 Bipolar disorder, unspecified; F23 Brief psychotic disorder; Z88.0 Allergy status to penicillin
CPT/HCPCS: 36415; 80048; 80307; 81001; 85025; 96372; 99284; J1200; J1630; J2060; J3486; 80320; G0480

== ENCOUNTER 2022-03-01 01:35 | Emergency (ER) | payer MEDICAID ==
[2022-03-01] MEDS ORDERED: ZIPRASIDONE MESYLATE 20 MG VIAL IM ONE ×2 (02:47→04:24)
--- NOTE | 2022-03-01 03:15 | Emergency Department Report ---
ED General Adult HPI - General Stated complaint: MENTAL HEALTH PUI?: No Time Seen by Provider: 03/01/22 03:10 Source: patient, RN/MD - History of Present Illness Initial comments: According to the triage nurse this patient walked into the ER as of signing with complaint of mental health. Patient has a history of schizophrenia and also bipolar; state he has not been taking his medications. While in the triage room patient started wandering around and looking underneath and appears paranoid and was admitted brought into the ER. This brought to my attention that patient appears to be paranoid and is walking around attempting to walk of the ER and started becoming severely agitated and screaming. Decision was to medically sedate the patient for his safety. Prior to being completely medically sedated I have spoken to the patient who himself denies suicidal ideation or homicidal ideation but that he has been hearing a lot of voices. Patient himself denies any other discomfort. - Related Data Previous Rx's Medication Instructions Recorded Last Taken Type Amlodipine Besylate [Norvasc] 5 mg PO DAILY #30 tablet 07/07/19 Unknown Rx Quetiapine Fumarate [SEROquel] 400 mg PO HS #30 tab 09/14/19 Unknown Rx QUEtiapine [SEROquel] 100 mg PO QHS 30 Days #30 12/13/21 Unknown Rx buPROPion XL [Wellbutrin Xl] 150 mg PO DAILY 30 Days #30 12/13/21 Unknown Rx Allergies Allergy/AdvReac Type Severity Reaction Status Date / Time Penicillins Allergy Itching Verified 12/13/21 04:54 ED Review of Systems ROS: Stated complaint: MENTAL HEALTH Other details as noted in HPI Comment: All other systems reviewed and negative Constitutional: no symptoms reported, see HPI Eyes: as per HPI ENT: as per HPI Respiratory: no symptoms reported, see HPI Cardiovascular: as per HPI Endocrine: no symptoms reported, see HPI Gastrointestinal: as per HPI Genitourinary: as per HPI Musculoskeletal: as per HPI Skin: as per HPI Neurological: as per HPI Psychiatric: anxiety, auditory hallucinations. denies: visual hallucinations, homicidal thoughts, suicidal thoughts Hematological/Lymphatic: as per HPI ED Past Medical Hx - Past Medical History Previous Medical History?: Yes Hx Hypertension: Yes Hx Psychiatric Treatment: Yes (Bipolar, Schizophrenia) Additional medical history: concussion 2018 head trauma - Surgical History Hx Coronary Stent: No Hx Pacemaker: No Hx Internal Defibrillator: No Hx Cholecystectomy: No Hx Appendectomy: No Hx Breast Surgery: No - Social History Smoking Status: Never Smoker Substance Use Type: None - Medications Home Medications: Home Medications Medication Instructions Recorded Confirmed Last Taken Type Amlodipine Besylate [Norvasc] 5 mg PO DAILY #30 tablet 07/07/19 11/22/19 Unknown Rx Quetiapine Fumarate [SEROquel] 400 mg PO HS #30 tab 09/14/19 11/22/19 Unknown Rx QUEtiapine [SEROquel] 100 mg PO QHS 30 Days #30 12/13/21 Unknown Rx buPROPion XL [Wellbutrin Xl] 150 mg PO DAILY 30 Days #30 12/13/21 Unknown Rx ED Physical Exam - General Limitations: No Limitations General appearance: alert, anxious, in distress (Appears paranoid and also in distress.) - Head Head exam: Present: atraumatic, normocephalic, normal inspection - Eye Eye exam: Present: normal appearance, PERRL Pupils: Present: normal accommodation - ENT ENT exam: Present: normal exam, mucous membranes moist - Neck Neck exam: Present: normal inspection, full ROM - Respiratory Respiratory exam: Present: normal lung sounds bilaterally - Cardiovascular Cardiovascular Exam: Present: regular rate, normal rhythm, normal heart sounds - GI/Abdominal GI/Abdominal exam: Present: soft - Extremities Exam Extremities exam: Present: normal inspection, full ROM, normal capillary refill - Back Exam Back exam: Present: normal inspection, full ROM - Neurological Exam Neurological exam: Present: alert, oriented X3, CN II-XII intact, normal gait - Psychiatric Psychiatric exam: Present: agitated, anxious, manic. Absent: homicidal ideation, suicidal ideation - Skin Skin exam: Present: normal color ED Course Vital Signs 03/01/22 03/01/22 03:10 03:18 Temperature 98.4 F Pulse Rate 112 H Respiratory 16 Rate Blood Pressure 181/118 O2 Sat by Pulse 100 100 Oximetry - Reevaluation(s) Reevaluation #1: 03/01/22 03:14 Patient is medically sedated for his safety; will place 1013. 03/01/22 05:08 Patient is medically cleared for mental health evaluation. ED Medical Decision Making - Lab Data Result diagrams: 03/01/22 03:41 03/01/22 03:41 Critical care attestation.: If time is entered above; I have spent that time in minutes in the direct care of this critically ill patient, excluding procedure time. ED Disposition Clinical Impression: Auditory hallucinations Condition: Stable
[2022-03-01 04:09] LABS: Hematocrit 32.1 % (35.5-45.6); Hemoglobin 10.2 gm/dl (11.8-15.2); Mean Corpuscular HGB Conc 32 % (32-34); Mean Corpuscular Volume 85 fl (84-94); Platelet Count 317 K/mm3 (140-440); Red Blood Count 3.79 M/mm3 (3.65-5.03); Red Cell Distribution Width 19.5 % (13.2-15.2)
[2022-03-01 04:21] LABS: Alanine Aminotransferase 57 units/L (7-56); BUN/Creatinine Ratio 19; Blood Urea Nitrogen 23 mg/dL (9-20); Calcium 9.5 mg/dL (8.4-10.2); Hemolysis Index 5
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
[2022-03-01] MEDS: QUEtiapine 100 MG TAB PO SCH (10:30)
--- NOTE | 2022-03-01 14:00 | Event Note ---
Date: 03/01/22 Patient reevaluated today. He is currently in no acute distress. Speech is garbled and difficult to follow. He was also seen by mental health security controls assessor. [address]
[2022-03-01] MEDS: ZIPRASIDONE MESYLATE 20 MG VIAL IM PRN (20:30)
[2022-03-02] MEDS: QUEtiapine 100 MG TAB PO SCH ×2 (01:09→09:00)
[2022-03-02] MEDS: traZODone 50 MG TAB PO SCH (01:09)
--- NOTE | 2022-03-02 08:03 | Progress Note ---
Subjective - Reason for Consult Consult date: 03/02/22 Reason for consult: psychosis - Chief Complaint Chief complaint: The patient was seen today. He is ranting. He is having flight of ideas and difficult to follow. He says he's trying to get to some program. He then says "I was at the clubhouse." He says he is crashing at his mother's. The patient says he was stressed, depressed, with "a lot of thoughts and bullshit." He denies SI/HI. REVIEW OF SYSTEMS Constitutional: Negative for weight loss ENT: Negative for stridor Respiratory: Negative for cough or hemoptysis All other systems reviewed and are negative MENTAL STATUS EXAMINATION General Appearance and Behavior: Age appropriate, good hygiene, wearing appropriate clothes, fair eye contact, cooperative Cooperation: Participating/engaged Psychomotor Behavior: Psychomotor normal Mood: depressed Affect and affective range: congruent with stated mood Thought Process: illogical Thought Content: hallucinations, flight of ideas Speech: ranting, fast paced Suicidal Ideation:Denies Homicidal Ideation: Denies Hallucinations: Auditory Delusions: None elicited Impulse Control: Limited Insight and Judgment: limited insight and judgment Memory: Limited Attention: distracted Orientation: Alert, oriented Diagnoses: Schizophrenia Treatment Plan 1013 Increase Seroquel 200mg po BID Trazodone 50mg po qhs PSYCHOTHERAPY: Supportive psychotherapy provided MEDICAL: Per primary team DELIRIUM PRECAUTIONS: Please re-orient patient frequently, keep lights on during the day, and minimize benzodiazepines and opiates as these medications could worsen patient's confusion. METAL CHECKER: Per medical team DISPOSITION: Recommend acute psychiatric inpatient treatment Will follow. Thank you for the consult. Case staffed with Dr. Yeung Mental Status Exam - Vital signs Last Vital Signs Temp 98.7 F 03/01/22 10:41 Pulse 90 03/01/22 10:41 Resp 20 03/01/22 20:00 BP 150/90 03/01/22 10:41 Pulse Ox 98 03/01/22 20:00
[2022-03-02] MEDS ORDERED: WATER FOR INJ Sterile (PF) 10 ML ONE ×2 (08:13→19:38)
[2022-03-02] MEDS: ZIPRASIDONE MESYLATE 20 MG VIAL IM PRN ×2 (09:40→19:47)
--- NOTE | 2022-03-02 15:29 | Event Note ---
Date: 03/02/22 Chart reviewed. VSS. Pt is comfortable/well appearing. Denies any complaints and is in no distress.
[2022-03-02 23:55] VITALS: BP 134/87
[2022-03-03] MEDS: traZODone 50 MG TAB PO SCH (03:11)
[2022-03-03] MEDS: QUEtiapine 100 MG TAB PO SCH ×2 (03:11→10:46)
[2022-03-03 10:27] LABS: Mucus,Urine 3+ /HPF
[2022-03-03 10:30] LABS: Bilirubin,Urine Negative (Negative); Color,Urine Yellow (Yellow)
[2022-03-03 10:31] LABS: Blood,Urine Negative (Negative); Protein,Urine <30 mg dL mg/dL (Negative); Urobilinogen,Urine < 2.0 mg/dL (<2.0)
[2022-03-03 10:34] LABS: Benzodiazepines Screen,Urine Negative; Cocaine Screen,Urine Negative; Methadone Screen,Urine Negative; Opiate Screen,Urine Negative
[2022-03-03 10:47] LABS: Amphetamine Screen,Urine Positive; Cannabinoid Screen,Urine Positive
--- NOTE | 2022-03-03 13:49 | Progress Note ---
Subjective - Reason for Consult Reason for consult: MHE - Chief Complaint Chief complaint: Subjective Reason for consult: Schizophrenia DATE SEEN: 03/03/22 Patient seen today. Patient states that he is "Read to get out of here". That he doesn't know why they brought him " down here".Patient states that he usually stays with his mum and also at the intermediate in [place]. Patient is observed to have scrapes on hands and elbows. Patient denies any SI/HI/AVH at this time. The patient was seen today. He is ranting. He is having flight of ideas and difficult to follow. He says he's trying to get to some program. He then says "I was at the clubhouse." He says he is crashing at his mother's. The patient says he was stressed, depressed, with "a lot of thoughts and bullshit." He denies SI/HI. REVIEW OF SYSTEMS Constitutional: Negative for weight loss ENT: Negative for stridor Respiratory: Negative for cough or hemoptysis All other systems reviewed and are negative MENTAL STATUS EXAMINATION General Appearance and Behavior: Age appropriate, good hygiene, wearing appropriate clothes, fair eye contact, cooperative Cooperation: Participating/engaged Psychomotor Behavior: Psychomotor normal Mood: depressed Affect and affective range: congruent with stated mood Thought Process: illogical Thought Content: hallucinations, flight of ideas Speech: ranting, fast paced Suicidal Ideation:Denies Homicidal Ideation: Denies Hallucinations: Auditory Delusions: None elicited Impulse Control: Limited Insight and Judgment: limited insight and judgment Memory: Limited Attention: distracted Orientation: Alert, oriented Diagnoses: Schizophrenia Treatment Plan 1013 Increase Seroquel 200mg po BID Trazodone 50mg po qhs PSYCHOTHERAPY: Supportive psychotherapy provided MEDICAL: Per primary team DELIRIUM PRECAUTIONS: Please re-orient patient frequently, keep lights on during the day, and minimize benzodiazepines and opiates as these medications could worsen patient's confusion. 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 Thank you for the consult. Case staffed with Dr. Yeung Mental Status Exam - Vital signs Last Vital Signs Temp 98.3 F 03/02/22 23:20 Pulse 63 03/02/22 23:47 Resp 18 03/02/22 23:20 BP 134/87 03/02/22 23:47 Pulse Ox 99 03/03/22 03:11
== END 2022-03-03 15:23 | disposition home or self-care (01) ==
LOC: ED 01:35
DX: R44.0 Auditory hallucinations (principal); Z20.822 Contact with and (suspected) exposure to COVID-19; Z88.0 Allergy status to penicillin; F31.9 Bipolar disorder, unspecified; I10 Essential (primary) hypertension
CPT/HCPCS: 36415; 80053; 80307; 81001; 83735; 84443; 85027; 96372; 99284; J3486; U0003; 80320; G0480

== ENCOUNTER 2022-04-12 02:18 | Emergency (ER) | payer MEDICAID ==
[2022-04-12 03:16] VITALS: BP 154/82
--- NOTE | 2022-04-12 03:22 | Emergency Department Report ---
ED General Adult HPI - General Chief complaint: Psych Stated complaint: EXCITIED DELERIUM PUI?: No Time Seen by Provider: 04/12/22 02:58 Source: patient, EMS Mode of arrival: Stretcher Limitations: No Limitations - History of Present Illness Initial comments: This provider information. Patient was running around in the parking running in traffic. EMS gave patient 50 mg Benadryl 5 mg Haldo and 2 mg of Ativan. At the time my evaluation patient is heavily sedated and snoring. - Related Data Previous Rx's Medication Instructions Recorded Last Taken Type Amlodipine Besylate [Norvasc] 5 mg PO DAILY #30 tablet 07/07/19 Unknown Rx Quetiapine Fumarate [SEROquel] 400 mg PO HS #30 tab 09/14/19 Unknown Rx QUEtiapine [SEROquel] 100 mg PO QHS 30 Days #30 12/13/21 Unknown Rx buPROPion XL [Wellbutrin Xl] 150 mg PO DAILY 30 Days #30 12/13/21 Unknown Rx Allergies Allergy/AdvReac Type Severity Reaction Status Date / Time Penicillins Allergy Itching Verified 12/13/21 04:54 ED Review of Systems ROS: Stated complaint: EXCITIED DELERIUM Other details as noted in HPI Comment: Unobtainable due to pts medical conditions ED Past Medical Hx - Past Medical History Previous Medical History?: Yes Hx Hypertension: Yes Hx Psychiatric Treatment: Yes (Bipolar, Schizophrenia) Additional medical history: concussion 2018 head trauma - Surgical History Hx Coronary Stent: No Hx Pacemaker: No Hx Internal Defibrillator: No Hx Cholecystectomy: No Hx Appendectomy: No Hx Breast Surgery: No - Social History Smoking Status: Never Smoker Substance Use Type: None - Medications Home Medications: Home Medications Medication Instructions Recorded Confirmed Last Taken Type Amlodipine Besylate [Norvasc] 5 mg PO DAILY #30 tablet 07/07/19 11/22/19 Unknown Rx Quetiapine Fumarate [SEROquel] 400 mg PO HS #30 tab 09/14/19 11/22/19 Unknown Rx QUEtiapine [SEROquel] 100 mg PO QHS 30 Days #30 12/13/21 Unknown Rx buPROPion XL [Wellbutrin Xl] 150 mg PO DAILY 30 Days #30 12/13/21 Unknown Rx ED Physical Exam - General Limitations: No Limitations, Altered Mental Status, Other (Patient is heavily sedated.) General appearance: other (Patient sedated) - Head Head exam: Present: atraumatic, normocephalic, normal inspection - Eye Eye exam: Present: normal appearance, PERRL, EOMI Pupils: Present: normal accommodation - ENT ENT exam: Present: normal exam, mucous membranes dry - Neck Neck exam: Present: normal inspection, full ROM - Respiratory Respiratory exam: Present: normal lung sounds bilaterally - Cardiovascular Cardiovascular Exam: Present: tachycardia, normal heart sounds - GI/Abdominal GI/Abdominal exam: Present: soft - Extremities Exam Extremities exam: Present: normal inspection, full ROM, normal capillary refill - Back Exam Back exam: Present: normal inspection, full ROM - Neurological Exam Neurological exam: Present: other (Patient sedated) - Skin Skin exam: Present: intact, normal color ED Course Vital Signs 04/12/22 04/12/22 04/12/22 02:31 02:51 03:00 Temperature 98.8 F Pulse Rate 150 H 96 H Respiratory 16 26 H 15 Rate Blood Pressure 154/82 O2 Sat by Pulse 97 97 95 Oximetry - Reevaluation(s) Reevaluation #1: 04/12/22 04:51 PATIENT IS MEDICALLY CLEARED FOR BEHAVIOR/MENTAL HEALTH EVALUATION. 1013. ED Medical Decision Making - Lab Data Result diagrams: 04/12/22 03:24 04/12/22 03:24 Critical care attestation.: If time is entered above; I have spent that time in minutes in the direct care of this critically ill patient, excluding procedure time. ED Disposition Clinical Impression: Suicidal ideation Condition: Stable
[2022-04-12 03:39] LABS: Hemoglobin 10.8 gm/dl (11.8-15.2); Mean Corpuscular HGB Conc 33 % (32-34); Mean Corpuscular Volume 86 fl (84-94); Platelet Count 405 K/mm3 (140-440); Red Blood Count 3.86 M/mm3 (3.65-5.03); Red Cell Distribution Width 18.4 % (13.2-15.2)
[2022-04-12 04:34] LABS: Alanine Aminotransferase 21 units/L (7-56); Albumin 4.6 g/dL (3.9-5); BUN/Creatinine Ratio 15; Blood Urea Nitrogen 20 mg/dL (9-20); Calcium 9.6 mg/dL (8.4-10.2); Hemolysis Index 9
[2022-04-12 11:01] LABS: Methadone Screen,Urine Negative; Opiate Screen,Urine Negative
[2022-04-12 11:13] LABS: Amphetamine Screen,Urine Positive; Benzodiazepines Screen,Urine Positive; Cannabinoid Screen,Urine Positive; Cocaine Screen,Urine Positive
[2022-04-12 11:15] LABS: Mucus,Urine FEW /HPF; WBC,Urine < 1.0 /HPF (0.0-6.0)
[2022-04-12 11:23] LABS: Color,Urine Yellow (Yellow)
[2022-04-12] MEDS ORDERED: MIDAZOLAM 2 MG/2 ML INJ IM PRN (12:51)
[2022-04-12] MEDS ORDERED: HALOPERIDOL LACTATE 5 MG/1 ML INJ IM PRN (12:51)
--- NOTE | 2022-04-12 12:53 | Event Note ---
Date: 04/12/22 The patient was evaluated in the emergency department for symptoms described in the history of present illness. He/she was evaluated in the context of the global COVID-19 pandemic, which necessitated consideration that the patient might be at risk for infection with the virus that causes COVID-19. Institutional protocols and algorithms that pertain to the evaluation of patients at risk for COVID-19 are in a state of rapid change based on information released by regulatory bodies including the CDC and federal and state organizations. These policies and algorithms were followed during the patient's care in the emergency department. Please note that these policies, procedures and recommendations changed on a rapid basis. Laboratory studies, vital signs, nursing documentation, ER documentation, and psychiatric documentation are reviewed and appreciated. Nursing team reports no acute events this morning or concerns. The patient is awake and not in any acute distress The patient was deemed medically suitable for psychiatric disposition and placement during his initial ER evaluation. The patient continues to remain medically suitable for psychiatric placement and disposition. He is currently pending psychiatric placement. Awaiting psychiatric consultation and recommendations. COVID swab ordered in anticipation of disposition. As needed haloperidol and Versed ordered. Vital Signs 04/12/22 04/12/22 04/12/22 02:31 02:51 03:00 Temperature 98.8 F Pulse Rate 150 H 96 H Respiratory 16 26 H 15 Rate Blood Pressure 154/82 O2 Sat by Pulse 97 97 95 Oximetry Lab Results 04/12/22 04/12/22 04/12/22 Range/Units 03:24 03:24 03:24 WBC 7.4 (4.5-11.0) K/mm3 RBC 3.86 (3.65-5.03) M/mm3 Hgb 10.8 L (11.8-15.2) gm/dl Hct 33.0 L (35.5-45.6) % MCV 86 (84-94) fl MCH 28 (28-32) pg MCHC 33 (32-34) % RDW 18.4 H (13.2-15.2) % Plt Count 405 (140-440) K/mm3 Sodium 142 (137-145) mmol/L Potassium 4.3 (3.6-5.0) mmol/L Chloride 104.4 (98-107) mmol/L Carbon Dioxide 25 (22-30) mmol/L Anion Gap 17 mmol/L BUN 20 (9-20) mg/dL Creatinine 1.3 (0.8-1.3) mg/dL Estimated GFR > 60 ml/min BUN/Creatinine Ratio 15 % Glucose 97 (75-100) mg/dL Calcium 9.6 (8.4-10.2) mg/dL Magnesium 1.80 (1.7-2.3) mg/dL Total Bilirubin 0.30 (0.1-1.2) mg/dL AST 24 (5-40) units/L ALT 21 (7-56) units/L Alkaline Phosphatase 98 (35-129) units/L Total Creatine Kinase (55-170) units/L Total Protein 7.1 (6.3-8.2) g/dL Albumin 4.6 (3.9-5) g/dL Albumin/Globulin Ratio 1.8 % TSH 3.550 (0.270-4.200) mlU/mL Urine Color (Yellow) Urine Turbidity (Clear) Specific [place] (Man) (1.003-1.030) Ur Protein (Man) (Negative) mg/dL Ur Ketones (Man) (Negative) Ur Nitrite (Man) (Negative) Ur Reducing Substances Urine Bilirubin (Man) (Negative) Urine Ictotest Leukocyte Esterase (Man) (Negative) Urine WBC (Auto) (0.0-6.0) /HPF Urine RBC (Auto) (0.0-6.0) /HPF Urine RBC (Manual) (Negative) Urine Mucus /HPF Salicylates (2.8-20.0) mg/dL Urine Opiates Screen Urine Methadone Screen Acetaminophen (10.0-30.0) ug/mL Ur Barbiturates Screen Ur Phencyclidine Scrn Ur Amphetamines Screen U Benzodiazepines Scrn Urine Cocaine Screen U Marijuana (THC) Screen Drugs of Abuse Note 04/12/22 04/12/22 04/12/22 Range/Units 03:24 03:24 03:24 WBC (4.5-11.0) K/mm3 RBC (3.65-5.03) M/mm3 Hgb (11.8-15.2) gm/dl Hct (35.5-45.6) % MCV (84-94) fl MCH (28-32) pg MCHC (32-34) % RDW (13.2-15.2) % Plt Count (140-440) K/mm3 Sodium (137-145) mmol/L Potassium (3.6-5.0) mmol/L Chloride (98-107) mmol/L Carbon Dioxide (22-30) mmol/L Anion Gap mmol/L BUN (9-20) mg/dL Creatinine (0.8-1.3) mg/dL Estimated GFR ml/min BUN/Creatinine Ratio % Glucose (75-100) mg/dL Calcium (8.4-10.2) mg/dL Magnesium (1.7-2.3) mg/dL Total Bilirubin (0.1-1.2) mg/dL AST (5-40) units/L ALT (7-56) units/L Alkaline Phosphatase (35-129) units/L Total Creatine Kinase < 7 L (55-170) units/L Total Protein (6.3-8.2) g/dL Albumin (3.9-5) g/dL Albumin/Globulin Ratio % TSH (0.270-4.200) mlU/mL Urine Color (Yellow) Urine Turbidity (Clear) Specific [place] (Man) (1.003-1.030) Ur Protein (Man) (Negative) mg/dL Ur Ketones (Man) (Negative) Ur Nitrite (Man) (Negative) Ur Reducing Substances Urine Bilirubin (Man) (Negative) Urine Ictotest Leukocyte Esterase (Man) (Negative) Urine WBC (Auto) (0.0-6.0) /HPF Urine RBC (Auto) (0.0-6.0) /HPF Urine RBC (Manual) (Negative) Urine Mucus /HPF Salicylates < 0.3 L (2.8-20.0) mg/dL Urine Opiates Screen Urine Methadone Screen Acetaminophen 5.0 L (10.0-30.0) ug/mL Ur Barbiturates Screen Ur Phencyclidine Scrn Ur Amphetamines Screen U Benzodiazepines Scrn Urine Cocaine Screen U Marijuana (THC) Screen Drugs of Abuse Note 04/12/22 04/12/22 Range/Units Unknown Unknown WBC (4.5-11.0) K/mm3 RBC (3.65-5.03) M/mm3 Hgb (11.8-15.2) gm/dl Hct (35.5-45.6) % MCV (84-94) fl MCH (28-32) pg MCHC (32-34) % RDW (13.2-15.2) % Plt Count (140-440) K/mm3 Sodium (137-145) mmol/L Potassium (3.6-5.0) mmol/L Chloride (98-107) mmol/L Carbon Dioxide (22-30) mmol/L Anion Gap mmol/L BUN (9-20) mg/dL Creatinine (0.8-1.3) mg/dL Estimated GFR ml/min BUN/Creatinine Ratio % Glucose (75-100) mg/dL Calcium (8.4-10.2) mg/dL Magnesium (1.7-2.3) mg/dL Total Bilirubin (0.1-1.2) mg/dL AST (5-40) units/L ALT (7-56) units/L Alkaline Phosphatase (35-129) units/L Total Creatine Kinase (55-170) units/L Total Protein (6.3-8.2) g/dL Albumin (3.9-5) g/dL Albumin/Globulin Ratio % TSH (0.270-4.200) mlU/mL Urine Color Yellow (Yellow) Urine Turbidity Slightly cloudy (Clear) Specific [place] (Man) 1.015 (1.003-1.030) Ur Protein (Man) Negative (Negative) mg/dL Ur Ketones (Man) Negative (Negative) Ur Nitrite (Man) Negative (Negative) Ur Reducing Substances Not Reportable Urine Bilirubin (Man) Negative (Negative) Urine Ictotest Not Reportable Leukocyte Esterase (Man) Negative (Negative) Urine WBC (Auto) < 1.0 (0.0-6.0) /HPF Urine RBC (Auto) 1.0 (0.0-6.0) /HPF Urine RBC (Manual) Negative (Negative) Urine Mucus Few /HPF Salicylates (2.8-20.0) mg/dL Urine Opiates Screen Negative Urine Methadone Screen Negative Acetaminophen (10.0-30.0) ug/mL Ur Barbiturates Screen Negative Ur Phencyclidine Scrn Negative Ur Amphetamines Screen Positive U Benzodiazepines Scrn Positive Urine Cocaine Screen Positive U Marijuana (THC) Screen Positive Drugs of Abuse Note Disclamer
--- NOTE | 2022-04-12 13:09 | Consultation ---
History of Present Illness - Reason for Consult Consult date: 04/12/22 Reason for consult: excited delirium - History of Present Psychiatric Illness The patient was seen today. The patient's thoughts are disorganized. He is mumbling incoherently. I am constantly repeating myself. I am unable to engage him in the evaluation. PAST PSYCHIATRIC HISTORY Unable to assess PAST MEDICAL HISTORY: None reported Family Psychiatric History: None reported or documented SOCIAL HISTORY Unable to assess REVIEW OF SYSTEMS Unable to assess MENTAL STATUS EXAMINATION Unable to assess Diagnoses: Polysubstance Use Disorder with Substance Induced Mood Schizophrenia Treatment Plan 1013 Seroquel 100mg po BID Trazodone 50mg po qhs Depakote DR 125mg po BID PSYCHOTHERAPY: Supportive psychotherapy provided MEDICAL: Per primary team DELIRIUM PRECAUTIONS: Please re-orient patient frequently, keep lights on during the day, and minimize benzodiazepines and opiates as these medications could worsen patient's confusion. 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 Thank you for the consult. Case staffed with Dr. Yeung Medications and Allergies Allergies Allergy/AdvReac Type Severity Reaction Status Date / Time Penicillins Allergy Itching Verified 12/13/21 04:54 Home Medications Medication Instructions Recorded Confirmed Last Taken Type Amlodipine Besylate [Norvasc] 5 mg PO DAILY #30 tablet 07/07/19 11/22/19 Unknown Rx Quetiapine Fumarate [SEROquel] 400 mg PO HS #30 tab 09/14/19 11/22/19 Unknown Rx QUEtiapine [SEROquel] 100 mg PO QHS 30 Days #30 12/13/21 Unknown Rx buPROPion XL [Wellbutrin Xl] 150 mg PO DAILY 30 Days #30 12/13/21 Unknown Rx Active Meds: Active Medications Haloperidol Lactate (Haloperidol Lactate 5 Mg/1 Ml Inj) 5 mg IM Q6HR PRN PRN Reason: Agitation Midazolam HCl (Midazolam 2 Mg/2 Ml Inj) 2 mg IM Q6HR PRN PRN Reason: Agitation Mental Status Exam - Vital signs Last Vital Signs Temp 98.8 F 04/12/22 02:31 Pulse 96 H 04/12/22 03:00 Resp 15 04/12/22 03:00 BP 154/82 04/12/22 03:00 Pulse Ox 95 04/12/22 03:00 Results Result Diagrams: 04/12/22 03:24 04/12/22 03:24 Abnormal lab results 04/12/22 04/12/22 04/12/22 Range/Units 03:24 03:24 03:24 Hgb 10.8 L (11.8-15.2) gm/dl Hct 33.0 L (35.5-45.6) % RDW 18.4 H (13.2-15.2) % Total Creatine Kinase < 7 L (55-170) units/L Salicylates < 0.3 L (2.8-20.0) mg/dL Acetaminophen (10.0-30.0) ug/mL 04/12/22 Range/Units 03:24 Hgb (11.8-15.2) gm/dl Hct (35.5-45.6) % RDW (13.2-15.2) % Total Creatine Kinase (55-170) units/L Salicylates (2.8-20.0) mg/dL Acetaminophen 5.0 L (10.0-30.0) ug/mL All other labs normal.
[2022-04-12] MEDS ORDERED: DIVALPROEX DR 125 MG TAB PO SCH (14:00)
[2022-04-12] MEDS ORDERED: QUEtiapine 100 MG TAB PO SCH (14:00)
[2022-04-12] MEDS ORDERED: traZODone 50 MG TAB PO SCH (22:00)
--- NOTE | 2022-04-14 13:22 | Electrocardiograph Report ---
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
== END 2022-04-12 19:10 ==
LOC: ED 02:18
DX: R45.851 Suicidal ideations (principal); Z20.822 Contact with and (suspected) exposure to COVID-19; I10 Essential (primary) hypertension; F31.9 Bipolar disorder, unspecified; F20.9 Schizophrenia, unspecified; Z88.0 Allergy status to penicillin
CPT/HCPCS: 36415; 80053; 80307; 81001; 82550; 83735; 84443; 85027; 93005; 99285; U0003; 80320; G0480